=== PATIENT | male | born 1960 | race American Indian/Alaskan Native ===

== ENCOUNTER 2017-08-10 07:31 | Emergency (ER) | payer OTHER, SELFPAY ==
[2017-08-10] MEDS ORDERED: NACL 0.9% 1000 ML 1,000 ML IV ONE (08:18)
--- NOTE | 2017-08-10 08:24 | Emergency Department Report ---
ED Seizure HPI - General Chief Complaint: Extremity Injury, Upper Stated Complaint: ABDOMINAL PAIN L SHOULDER PAIN Time Seen by Provider: 08/10/17 07:59 Source: patient, family, EMS Mode of arrival: Stretcher Limitations: No Limitations - History of Present Illness Initial Comments: Patient is 56 years old male with no significant past medical history. Patient brought to the ER via EMS after he had an episode of seizure-like activity. Patient witness patient having a tonic clonic jerking movement with eye rolling back and biting his tongue. Patient stated that he did not have any symptoms when he went to bed last night. stated that he is confused after this event but she stated that he is back to his normal baseline. Patient is complaining of left shoulder pain. He denied any headache, weakness or numbness or tingling sensation. No bowel or bladder incontinence. MD Complaint: seizure -: Sudden Description of Episode: loss of consciousness, tonic-clonic movement, post- event confusion Witnessed:: Yes Trauma: Yes (left shoulder injury) Seizure History: none Place: home Possible Precipitating Event: none Associated Symptoms: tongue injury, shoulder dislocation. denies: chest pain, confusion, cough, diaphoresis, fever/chills, loss of appetite, malaise, rash, shortness of breath, syncope, weakness Treatments Prior to Arrival: none - Related Data Previous Rx's Medication Instructions Recorded Last Taken Type Cyclobenzaprine [Flexeril] 10 mg PO TID PRN #14 tablet 08/01/13 Unknown Rx HYDROcodone/APAP 5-325 [[place] 1 each PO Q6HR PRN #14 tablet 08/01/13 Unknown Rx 5-325 mg TAB] Ibuprofen [Motrin] 800 mg PO Q8H PRN #20 tablet 08/01/13 Unknown Rx Allergies Allergy/AdvReac Type Severity Reaction Status Date / Time No Known Allergies Allergy Verified 08/10/17 11:08 ED Review of Systems ROS: Stated complaint: ABDOMINAL PAIN L SHOULDER PAIN Other details as noted in HPI Comment: All other systems reviewed and negative Constitutional: denies: chills, fever Respiratory: denies: cough, orthopnea, shortness of breath, SOB with exertion, SOB at rest Cardiovascular: denies: chest pain, palpitations, dyspnea on exertion Gastrointestinal: denies: abdominal pain, nausea, vomiting, diarrhea, constipation, hematemesis, melena, hematochezia Genitourinary: denies: urgency, dysuria, frequency, hematuria, discharge, testicular pain, testicular mass Skin: denies: rash, lesions Neurological: denies: headache, weakness, numbness, paresthesias, confusion ED Past Medical Hx - Past Medical History Previous Medical History?: No - Surgical History Past Surgical History?: Yes Additional Surgical History: Abdominal surgery - Social History Smoking Status: Never Smoker Substance Use Type: Alcohol - Medications Home Medications: Home Medications Medication Instructions Recorded Confirmed Last Taken Type Cyclobenzaprine [Flexeril] 10 mg PO TID PRN #14 tablet 08/01/13 Unknown Rx HYDROcodone/APAP 5-325 [[place] 1 each PO Q6HR PRN #14 tablet 08/01/13 Unknown Rx 5-325 mg TAB] Ibuprofen [Motrin] 800 mg PO Q8H PRN #20 tablet 08/01/13 Unknown Rx ED Physical Exam - General Limitations: No Limitations General appearance: alert, in no apparent distress - Head Head exam: Present: atraumatic, normocephalic, normal inspection - Eye Eye exam: Present: normal appearance, PERRL Pupils: Present: normal accommodation - ENT ENT exam: Present: normal exam, normal orophraynx, mucous membranes moist, TM's normal bilaterally, normal external ear exam - Neck Neck exam: Present: normal inspection, full ROM. Absent: tenderness, meningismus, lymphadenopathy, thyromegaly - Respiratory Respiratory exam: Present: normal lung sounds bilaterally. Absent: respiratory distress, wheezes, rales, rhonchi, stridor, chest wall tenderness, accessory muscle use, decreased breath sounds, prolonged expiratory - Cardiovascular Cardiovascular Exam: Present: regular rate, normal rhythm, normal heart sounds - GI/Abdominal GI/Abdominal exam: Present: soft, normal bowel sounds. Absent: distended, tenderness, guarding, rebound, rigid, organomegaly, mass, bruit, pulsatile mass , hernia - Extremities Exam Extremities exam: Present: normal inspection. Absent: full ROM (left shoulder with decreased range of motion), tenderness, pedal edema, joint swelling - Back Exam Back exam: Present: normal inspection, full ROM. Absent: tenderness, CVA tenderness (R), CVA tenderness (L), muscle spasm, paraspinal tenderness, vertebral tenderness, rash noted - Neurological Exam Neurological exam: Present: alert, oriented X3, CN II-XII intact, normal gait, reflexes normal. Absent: motor sensory deficit - Skin Skin exam: Present: warm, intact, normal color ED Course Vital Signs 08/10/17 08/10/17 08/10/17 07:41 08:56 10:04 Temperature 97.7 F Temperature [ Pre-Procedure] Pulse Rate 81 Pulse Rate [ Intra-Procedure ] Pulse Rate [ Post-Procedure] Pulse Rate [Pre -Procedure] Respiratory 18 16 12 Rate Respiratory Rate [Intra- Procedure] Respiratory Rate [Post- Procedure] Respiratory Rate [Pre- Procedure] Blood Pressure 160/70 Blood Pressure [Intra- Procedure] Blood Pressure [Post-Procedure ] Blood Pressure [Pre-Procedure] Blood Pressure 160/70 [Right] O2 Sat by Pulse 98 98 100 Oximetry O2 Sat by Pulse Oximetry [ Intra-Procedure ] O2 Sat by Pulse Oximetry [Post -Procedure] O2 Sat by Pulse Oximetry [Pre- Procedure] 08/10/17 08/10/17 08/10/17 10:14 10:15 10:31 Temperature Temperature [ Pre-Procedure] Pulse Rate 56 L 46 L 76 Pulse Rate [ Intra-Procedure ] Pulse Rate [ Post-Procedure] Pulse Rate [Pre -Procedure] Respiratory 20 12 28 H Rate Respiratory Rate [Intra- Procedure] Respiratory Rate [Post- Procedure] Respiratory Rate [Pre- Procedure] Blood Pressure 207/95 Blood Pressure [Intra- Procedure] Blood Pressure [Post-Procedure ] Blood Pressure [Pre-Procedure] Blood Pressure 168/98 [Right] O2 Sat by Pulse 100 99 100 Oximetry O2 Sat by Pulse Oximetry [ Intra-Procedure ] O2 Sat by Pulse Oximetry [Post -Procedure] O2 Sat by Pulse Oximetry [Pre- Procedure] 08/10/17 08/10/17 08/10/17 10:40 10:45 10:50 Temperature Temperature [ Pre-Procedure] Pulse Rate 78 50 L Pulse Rate [ Intra-Procedure ] Pulse Rate [ Post-Procedure] Pulse Rate [Pre -Procedure] Respiratory 11 L 10 L Rate Respiratory Rate [Intra- Procedure] Respiratory Rate [Post- Procedure] Respiratory Rate [Pre- Procedure] Blood Pressure 188/93 Blood Pressure [Intra- Procedure] Blood Pressure [Post-Procedure ] Blood Pressure [Pre-Procedure] Blood Pressure [Right] O2 Sat by Pulse 100 100 Oximetry O2 Sat by Pulse Oximetry [ Intra-Procedure ] O2 Sat by Pulse Oximetry [Post -Procedure] O2 Sat by Pulse Oximetry [Pre- Procedure] 08/10/17 08/10/17 08/10/17 10:53 11:00 11:06 Temperature Temperature [ 98.6 F Pre-Procedure] Pulse Rate 53 L 49 L Pulse Rate [ 90 Intra-Procedure ] Pulse Rate [ 49 L Post-Procedure] Pulse Rate [Pre 59 L -Procedure] Respiratory 23 23 Rate Respiratory 31 H Rate [Intra- Procedure] Respiratory 25 H Rate [Post- Procedure] Respiratory 12 Rate [Pre- Procedure] Blood Pressure 180/90 Blood Pressure 221/95 [Intra- Procedure] Blood Pressure 213/90 [Post-Procedure ] Blood Pressure 196/62 [Pre-Procedure] Blood Pressure 180/90 [Right] O2 Sat by Pulse 100 100 Oximetry O2 Sat by Pulse 100 Oximetry [ Intra-Procedure ] O2 Sat by Pulse 100 Oximetry [Post -Procedure] O2 Sat by Pulse 100 Oximetry [Pre- Procedure] 08/10/17 08/10/17 08/10/17 11:15 11:23 11:31 Temperature Temperature [ Pre-Procedure] Pulse Rate 48 L 55 L 57 L Pulse Rate [ Intra-Procedure ] Pulse Rate [ Post-Procedure] Pulse Rate [Pre -Procedure] Respiratory 24 28 H 25 H Rate Respiratory Rate [Intra- Procedure] Respiratory Rate [Post- Procedure] Respiratory Rate [Pre- Procedure] Blood Pressure 183/97 180/90 Blood Pressure [Intra- Procedure] Blood Pressure [Post-Procedure ] Blood Pressure [Pre-Procedure] Blood Pressure 183/97 [Right] O2 Sat by Pulse 98 100 99 Oximetry O2 Sat by Pulse Oximetry [ Intra-Procedure ] O2 Sat by Pulse Oximetry [Post -Procedure] O2 Sat by Pulse Oximetry [Pre- Procedure] 08/10/17 08/10/17 11:45 12:01 Temperature 97.9 F Temperature [ Pre-Procedure] Pulse Rate 69 48 L Pulse Rate [ Intra-Procedure ] Pulse Rate [ Post-Procedure] Pulse Rate [Pre -Procedure] Respiratory 17 15 Rate Respiratory Rate [Intra- Procedure] Respiratory Rate [Post- Procedure] Respiratory Rate [Pre- Procedure] Blood Pressure 175/85 183/97 Blood Pressure [Intra- Procedure] Blood Pressure [Post-Procedure ] Blood Pressure [Pre-Procedure] Blood Pressure 175/85 [Right] O2 Sat by Pulse 97 97 Oximetry O2 Sat by Pulse Oximetry [ Intra-Procedure ] O2 Sat by Pulse Oximetry [Post -Procedure] O2 Sat by Pulse Oximetry [Pre- Procedure] ED Medical Decision Making - Lab Data Result diagrams: 08/10/17 08:35 08/10/17 08:35 - Radiology Data Radiology results: report reviewed Referring Physician: CUCO ENAMORADO Patient Name: NIC CRESPO Date of : 1960 Sex: Male Report Date: 2017-08-10 Report Status: Finalized Findings [facility] [address] [place] [address] Cat Scan Report Signed Patient: NIC CRESPO MR#: [id number] : 1960 Acct:[id number] Age/Sex: 56 / M ADM Date: 08/10/17 Loc: ED Attending Dr: Ordering Physician: CUCO ENAMORADO Date of Service: 08/10/17 Procedure(s): CT head/brain wo con Accession Number(s): [id number] cc: CUCO ENAMORADO CT scan of head without IV contrast: History: Seizure. Findings: Ventricles are normal in size and midline in location. No evidence of acute ischemic, hemorrhage or mass. No extra-axial fluid collection. Normal brainstem and cerebellum. Impression: No acute intracranial abnormality. Transcribed By: PTP Dictated By: DENNIS REYES MD Electronically Authenticated By: DENNIS REYES MD Signed Date/Time: 08/10/17855 DD/ 4 TD/TT: 08/10/17855 - Medical Decision Making I discussed the patient is Dr. Kirkpatrick, who agreed to admit to service. Critical care attestation.: If time is entered above; I have spent that time in minutes in the direct care of this critically ill patient, excluding procedure time. ED Disposition Clinical Impression: New onset seizure, Fracture dislocation of left shoulder joint Disposition: OP ADMIT IP TO THIS HOSP Is pt being admited?: Yes Condition: Stable Referrals: PRIMARY CARE, [Primary Care Provider] - 3-5 Days
[2017-08-10] MEDS ORDERED: KEPPRA 1,000 MG/NS 0.75% 100ML 1,000 MG/100 ML BAG IV ONE (08:25)
[2017-08-10 08:50] LABS: Basophils # (Auto) 0.1 K/mm3 (0.0-0.1); Basophils % (Auto) 0.4 % (0.0-1.8); Eosinophils % (Auto) 0.3 % (0.0-4.3); Hemoglobin 15.4 gm/dl (11.8-15.2); Lymphocytes # (Auto) 0.9 K/mm3 (1.2-5.4); Lymphocytes % (Auto) 5.9 % (13.4-35.0); Mean Corpuscular HGB Conc 35 % (32-34); Mean Corpuscular Hemoglobin 35 pg (28-32); Mean Corpuscular Volume 99 fl (84-94); Monocytes # (Auto) 0.9 K/mm3 (0.0-0.8); Monocytes % (Auto) 5.7 % (0.0-7.3); Platelet Count 205 K/mm3 (140-440); Red Blood Count 4.44 M/mm3 (3.65-5.03); Red Cell Distribution Width 13.1 % (13.2-15.2)
[2017-08-10 08:59] LABS: Amphetamine Screen,Urine PRESUMPTIVE NEGATIVE; Benzodiazepines Screen,Urine PRESUMPTIVE NEGATIVE; Cocaine Screen,Urine PRESUMPTIVE NEGATIVE; Methadone Screen,Urine PRESUMPTIVE NEGATIVE; Opiate Screen,Urine PRESUMPTIVE NEGATIVE
[2017-08-10 09:11] LABS: Cannabinoid Screen,Urine PRESUMPTIVE POSITIVE
[2017-08-10 09:18] LABS: Bilirubin,Urine NEG (Negative); Blood,Urine MOD (Negative); Color,Urine Straw (Yellow); Mucus,Urine FEW /HPF; Urobilinogen,Urine < 2.0 mg/dL (<2.0); WBC,Urine < 1.0 /HPF (0.0-6.0)
--- NOTE | 2017-08-10 09:18 | Cat Scan Report ---
CT scan of head without IV contrast: History: Seizure. Findings: Ventricles are normal in size and midline in location. No evidence of acute ischemic, hemorrhage or mass. No extra-axial fluid collection. Normal brainstem and cerebellum. Impression: No acute intracranial abnormality.
[2017-08-10 09:19] LABS: Alanine Aminotransferase 18 units/L (7-56); BUN/Creatinine Ratio 15; Blood Urea Nitrogen 12 mg/dL (9-20); Calcium 9.2 mg/dL (8.4-10.2); Hemolysis Index 11
[2017-08-10] MEDS ORDERED: ZOFRAN IV ONE ×3 (09:41→19:37)
[2017-08-10] MEDS ORDERED: KETALAR IV ONE (10:00)
[2017-08-10] MEDS ORDERED: SUBLIMAZE IV ONE ×2 (10:00→11:20)
[2017-08-10] MEDS ORDERED: DIPRIVAN 10 MG/ML IV ONE (10:31)
[2017-08-10] MEDS ORDERED: KETAMINE HCL IV ONE (11:00)
--- NOTE | 2017-08-10 11:01 | XRay Report ---
Single view left shoulder: History: Suspected bone fracture. Post reduction. Findings: A.c. joint appears normal. The alignment of the humeral head with the glenoid appears normal in single internal rotation view. There is a bony fragment identified between the glenoid and the humeral head which may be a fracture from the humerus most probably and less likely a fracture from the glenoid. Impression: Findings as detailed above. If clinically indicated CT scan may be advised.
[2017-08-10] MEDS ORDERED: AMIDATE IV ONE ×2 (11:21→14:53)
[2017-08-10] MEDS ORDERED: MORPHINE IV ONE (12:25)
--- NOTE | 2017-08-10 12:29 | XRay Report ---
Left shoulder single view post reduction: Compared to 08/10/17 obtained at 10:35 AM. Findings: Normal alignment of humeral mid glenoid in single internal rotation view. Bony fragment identified between glenoid and humeral head. No interval change seen. Impression: No interval change.
--- NOTE | 2017-08-10 13:54 | History and Physical Report ---
History of Present Illness Chief complaint: I had a seizure History of present illness: 56 YO Male with NO PMH presents to ED for evaluation of new onset seizure complicated by a fall which resulted on left shoulder dislocation. Pt seen and evaluated in ED and treated with antiepileptic therapy with resolution of symptoms. Pt shoulder reduced in ED. Pt medically optimized and back to usual state of health. Pt discharged home and instructed to f/u pcp 1wk, neurology 1 wk. Pt instructed to refrain from driving, and climbing to heights above 2 feet until cleared by neurologist. Pt also instructed to f/u with ortho surgery for f /u care. within 3-5 days. Past History Past Medical History: No medical history, other (reviewed) Past Surgical History: bowel surgery Social history: , lives with family Family history: no significant family history (reviewed) Medications and Allergies Allergies Allergy/AdvReac Type Severity Reaction Status Date / Time No Known Allergies Allergy Verified 08/10/17 11:08 Home Medications Medication Instructions Recorded Confirmed Last Taken Type Cyclobenzaprine [Flexeril] 10 mg PO TID PRN #14 tablet 08/01/13 Unknown Rx HYDROcodone/APAP 5-325 [[place] 1 each PO Q6HR PRN #14 tablet 08/01/13 Unknown Rx 5-325 mg TAB] Ibuprofen [Motrin] 800 mg PO Q8H PRN #20 tablet 08/01/13 Unknown Rx Oxycodone HCl/Acetaminophen 1 each PO Q6HR PRN #28 tablet 08/10/17 Unknown Rx [Percocet 7.5/325 mg] levETIRAcetam [Keppra] 500 mg PO BID #60 tablet 08/10/17 Unknown Rx Active Meds: Active Medications Vancomycin HCl (Vancomycin/Ns 1 Gm/250 Ml) 1 gm in 250 mls @ 167.007 mls/hr IV ONCE FIDELIA; Protocol Levetiracetam (Keppra) 500 mg PO BID FIDELIA Vancomycin HCl (Vancomycin Pharmacy To Dose) 1 each IV PKCONSULT FIDELIA Review of Systems Constitutional: no weight loss, no weight gain, no fever, no chills Ears, nose, mouth and throat: no ear pain, no ear discharge, no tinnitis, no decreased hearing Cardiovascular: syncope, no chest pain, no orthopnea, no palpitations, no rapid/ irregular heart beat Respiratory: no cough, no cough with sputum, no excessive sputum, no hemoptysis , no shortness of breath Gastrointestinal: no nausea, no vomiting, no constipation, no change in bowel habits Genitourinary Male: no dysuria, no hematuria, no flank pain, no discharge, no urinary frequency, no urinary hesitancy, no nocturia Rectal: no pain, no incontinence, no bleeding Musculoskeletal: no neck stiffness, no neck pain, no shooting arm pain, no arm numbness/tingling, no low back pain, no shooting leg pain, no leg numbness/ tingling Integumentary: no rash, no pruritis, no redness, no sores, no wounds Neurological: seizures, syncope, no head injury, no transient paralysis, no paralysis, no weakness, no parathesias, no vertigo, no headaches, no migraines Psychiatric: no anxiety, no memory loss, no change in sleep habits, no sleep disturbances, no insomnia, no hypersomnia Endocrine: no cold intolerance, no heat intolerance, no polyphagia, no excessive thirst, no polydipsia, no polyuria, no nocturia Hematologic/Lymphatic: no easy bruising, no easy bleeding, no lymphadenopathy, no lymphedema Allergic/Immunologic: no urticaria, no allergic rhinitis, no wheezing, no persistent infections, no anaphylaxis Exam - Constitutional Vitals: Temp Pulse Resp BP Pulse Ox 97.9 F 48 L 15 183/97 97 08/10/17 11:45 08/10/17 12:01 08/10/17 12:01 08/10/17 12:01 08/10/17 12:01 General appearance: Present: no acute distress, well-nourished - EENT Eyes: Present: PERRL ENT: hearing intact, clear oral mucosa - Neck Neck: Present: supple, normal ROM - Respiratory Respiratory effort: normal Respiratory: bilateral: CTA - Cardiovascular Heart Sounds: Present: S1 & S2. Absent: rub, click - Extremities Extremities: pulses symmetrical, No edema Peripheral Pulses: within normal limits - Abdominal General gastrointestinal: Present: soft, non-tender, non-distended, normal bowel sounds Male genitourinary: Present: normal - Integumentary Integumentary: Present: clear, warm, dry - Musculoskeletal Musculoskeletal: gait normal, strength equal bilaterally - Psychiatric Psychiatric: appropriate mood/affect, intact judgment & insight - Neurologic Neurologic: CNII-XII intact, moves all extremities Results - Labs CBC & Chem 7: 08/10/17 08:35 08/10/17 08:35 Labs: Abnormal lab results 08/10/17 08/10/17 Range/Units 08:35 08:35 WBC 15.0 H (4.5-11.0) K/mm3 Hgb 15.4 H (11.8-15.2) gm/dl MCV 99 H (84-94) fl MCH 35 H (28-32) pg MCHC 35 H (32-34) % RDW 13.1 L (13.2-15.2) % Lymph % (Auto) 5.9 L (13.4-35.0) % Lymph # 0.9 L (1.2-5.4) K/mm3 [place] # 0.9 H (0.0-0.8) K/mm3 Seg Neutrophils % 87.7 H (40.0-70.0) % Seg Neutrophils # 13.2 H (1.8-7.7) K/mm3 Chloride 96.2 L (98-107) mmol/L Glucose 119 H (75-100) mg/dL Assessment and Plan - Patient Problems (1) Fracture dislocation of left shoulder joint Status: Acute Qualifiers: Encounter type: initial encounter Plan to address problem: Shoulder reduced in ED, Ortho F/U 3-5 days,pain control (2) New onset seizure Status: Acute Plan to address problem: keppra therapy, neurology f//u 1wk. No driving until cleared by neurology.
[2017-08-10] MEDS ORDERED: VANCOMYCIN PHARMACY TO DOSE IV SCH (14:00)
[2017-08-10] MEDS ORDERED: VANCOMYCIN 1,500 MG in NACL 0.9% 500 ML 500 ML IV ONE (14:15)
[2017-08-10] MEDS ORDERED: DILAUDID IV ONE ×2 (14:26→19:37)
[2017-08-10] MEDS ORDERED: PERCOCET 5/325 PO ONE (16:04)
[2017-08-10] MEDS ORDERED: ZOFRAN ONE (17:31)
[2017-08-10] MEDS ORDERED: APRESOLINE IV ONE (19:37)
[2017-08-10 19:54] VITALS: BP 184/78
[2017-08-10] MEDS ORDERED: KEPPRA PO SCH (22:00)
[2017-08-11] MEDS ORDERED: VANCOMYCIN/NS 1 GM/250 ML 1 GM/250 ML BAG IV SCH (04:00)
--- NOTE | 2017-08-12 14:26 | Cat Scan Report ---
FINAL REPORT EXAM: CT UPPER EXTREM LT WO CON HISTORY: left shoulder dislocation and fracture TECHNIQUE: CT of the left shoulder was performed without intravenous contrast. Coronal and sagittal reconstructions were included. PRIORS: Left shoulder radiographs from 08/10/2017. FINDINGS: Posterior glenohumeral joint dislocation is again seen with acute fracture of the anteromedial aspect of the humeral head. There is a fracture fragment displaced anterolaterally. Fracture of the posterior margin of the glenoid rim is seen. Mild left lower lobe atelectasis is seen. Coronary artery calculi are seen. Mild centrilobular emphysema is seen. Degenerative changes are seen in the thoracic spine. IMPRESSION: Posterior left glenohumeral joint dislocation with acute reverse Hill-Sachs and reverse [place] deformities.
--- NOTE | 2017-08-12 14:26 | XRay Report ---
FINAL REPORT EXAM: XR SHOULDER 2+V LT HISTORY: Left shoulder injury COMPARISONS: None. FINDINGS: Four views left shoulder Left glenohumeral joint is posteriorly dislocated. Minimally displaced glenoid fracture is present. Reverse Hill-Sachs impaction deformity is also present. Acromioclavicular and coracoclavicular intervals are within normal limits. Incomplete evaluation the adjacent left lung is unremarkable. IMPRESSION: Posterior left shoulder dislocation is present with associated reverse [place] and Hill-Sachs lesions.
== END 2017-08-10 20:00 | disposition admitted as inpatient to this hospital (09) ==
LOC: ED 07:31
DX: S43.005A Unspecified dislocation of left shoulder joint, initial encounter (principal); X58.XXXA Exposure to other specified factors, initial encounter; Y93.89 Activity, other specified; Y92.89 Other specified places as the place of occurrence of the external cause; Y99.8 Other external cause status; R56.9 Unspecified convulsions
CPT/HCPCS: 23650; 36415; 70450; 73020; 73030; 73200; 80053; 80307; 81001; 84484; 85025; 93005; 93010; 94760; 96365; 96366; 96367; 96375; 96376; 99285; G0480; J0360; J1170; J1953; J2270; J2405; J3010; J3370; J7030; J7040; 80320; J2704

== ENCOUNTER 2018-06-17 12:30 | Emergency (ER) | payer OTHER ==
[2018-06-17 13:14] LABS: Hematocrit 44.5 % (35.5-45.6); Hemoglobin 15.3 gm/dl (11.8-15.2); Mean Corpuscular HGB Conc 34 % (32-34); Mean Corpuscular Volume 98 fl (84-94); Platelet Count 248 K/mm3 (140-440); Red Blood Count 4.53 M/mm3 (3.65-5.03); Red Cell Distribution Width 13.2 % (13.2-15.2)
[2018-06-17 13:34] LABS: BUN/Creatinine Ratio 17; Blood Urea Nitrogen 12 mg/dL (9-20); Calcium 8.8 mg/dL (8.4-10.2); Hemolysis Index 14
[2018-06-17 14:11] LABS: Bilirubin,Urine NEG (Negative); Blood,Urine SM (Negative); Color,Urine Yellow (Yellow); Mucus,Urine FEW /HPF; Urobilinogen,Urine < 2.0 mg/dL (<2.0)
--- NOTE | 2018-06-17 14:51 | Cat Scan Report ---
PROCEDURE: CT HEAD/BRAIN WO CON TECHNIQUE: Computerized tomography of the head was performed without contrast material. Coronal and s agittal reformatted images were provided. CT DOSE LENGTH PRODUCT: 920.5 mGy-cm. HISTORY: possible seizure COMPARISONS: CT head August 10, 2017. FINDINGS: There is no evidence for acute ischemia. There is no hemorrhage. There is no midline shift. There is no hydrocephalus. There is no mass. Age appropriate zhang-white matter attenuation is noted. There is no calvarial fracture. The temporal bones demonstrate aerated mastoid air cells. The middle ears appear unremarkable. Paranasal sinuses are unremarkable. Chronic left lamina papyracea fracture. Globes are intact. IMPRESSION: * No acute intracranial findings. This document is electronically signed by Pancho Rosado MD., June 17 2018 02:48:49 PM ET
--- NOTE | 2018-06-17 15:06 | XRay Report ---
ROUTINE CHEST, TWO VIEWS: HISTORY: Altered mental status. The trachea, heart, mediastinal contour, lung valentino and bony thorax are unremarkable. IMPRESSION: Unremarkable chest x-ray.
[2018-06-17] MEDS ORDERED: KEPPRA 1,000 MG in NACL 0.9% 100 ML IV ONE (15:34)
[2018-06-17] MEDS ORDERED: KEPPRA 1,000 MG/NS 0.75% 100ML 1,000 MG/100 ML BAG IV ONE (15:35)
--- NOTE | 2018-06-17 15:38 | Emergency Department Report ---
ED Seizure HPI - General Chief Complaint: Seizure Stated Complaint: SEIZURE Time Seen by Provider: 06/17/18 12:54 Source: EMS Mode of arrival: Stretcher Limitations: No Limitations - History of Present Illness Initial Comments: 57-year-old male presents to ED for a possible seizure at home. Patient was at home with daughter and grandchild, daughter reports patient dropped his grandchild and became altered, unresponsive, with a blank stare. No urinary incontinence. EMS was called. Patient became responsive and EMS arrived however states he was confused and had no recollection of the events. Patient diagnosed with new onset seizure in August of last year, however it is not taking any anti-convulsants. Denies alcohol, drug use. Patient denies fever, any recent illness such as cough, vomiting, diarrhea, abdominal pain. Patient also denies chest pain, shortness of breath, headache. PCP: the [facility] Complaint: possible seizure -: This afternoon Description of Episode: post-event confusion Witnessed:: Yes Trauma: No Seizure History: known seizure disorder, history of non-compliance Place: home Associated Symptoms: denies: chest pain, cough, fever/chills, shortness of breath, tongue injury, shoulder dislocation - Related Data Home Medications Medication Instructions Recorded Confirmed Last Taken Amlodipine Besylate [Norvasc] 5 mg PO QDAY 06/17/18 06/17/18 06/16/18 Ibuprofen [Motrin] 800 mg PO DAILY PRN 06/17/18 06/17/18 Unknown Previous Rx's Medication Instructions Recorded Last Taken Type levETIRAcetam [Keppra TAB] 500 mg PO BID #60 tablet 06/17/18 Unknown Rx Allergies Allergy/AdvReac Type Severity Reaction Status Date / Time No Known Allergies Allergy Verified 08/10/17 11:08 ED Review of Systems ROS: Stated complaint: SEIZURE Other details as noted in HPI Comment: All other systems reviewed and negative Constitutional: denies: chills, fever Respiratory: denies: shortness of breath Cardiovascular: denies: chest pain Gastrointestinal: denies: nausea, vomiting, diarrhea Neurological: denies: headache ED Past Medical Hx - Past Medical History Previous Medical History?: Yes Hx Hypertension: Yes Hx Seizures: Yes - Surgical History Past Surgical History?: Yes Additional Surgical History: Abdominal surgery - Social History Smoking Status: Current Some Day Smoker Substance Use Type: None - Medications Home Medications: Home Medications Medication Instructions Recorded Confirmed Last Taken Type Amlodipine Besylate [Norvasc] 5 mg PO QDAY 06/17/18 06/17/18 06/16/18 History Ibuprofen [Motrin] 800 mg PO DAILY PRN 06/17/18 06/17/18 Unknown History levETIRAcetam [Keppra TAB] 500 mg PO BID #60 tablet 06/17/18 Unknown Rx ED Physical Exam - General Limitations: No Limitations General appearance: alert, in no apparent distress - Head Head exam: Present: atraumatic, normocephalic - Eye Eye exam: Present: normal appearance - ENT ENT exam: Present: mucous membranes moist - Neck Neck exam: Present: normal inspection - Respiratory Respiratory exam: Present: normal lung sounds bilaterally. Absent: respiratory distress - Cardiovascular Cardiovascular Exam: Present: regular rate, normal rhythm - GI/Abdominal GI/Abdominal exam: Present: soft. Absent: distended, tenderness - Extremities Exam Extremities exam: Present: normal inspection - Neurological Exam Neurological exam: Present: alert, oriented X3, CN II-XII intact. Absent: motor sensory deficit - Psychiatric Psychiatric exam: Present: normal affect, normal mood - Skin Skin exam: Present: warm, dry, intact, normal color ED Course Vital Signs 06/17/18 06/17/18 06/17/18 12:44 12:54 13:00 Temperature 99 F Pulse Rate 82 66 55 L Respiratory 16 15 13 Rate Blood Pressure 160/104 145/82 Blood Pressure 144/74 [Left] O2 Sat by Pulse 99 100 99 Oximetry 06/17/18 06/17/18 06/17/18 13:13 14:00 14:30 Temperature Pulse Rate 58 L 59 L Respiratory 15 21 10 L Rate Blood Pressure 148/77 144/79 Blood Pressure [Left] O2 Sat by Pulse 100 99 99 Oximetry 06/17/18 06/17/18 06/17/18 15:00 15:31 16:00 Temperature Pulse Rate 57 L Respiratory 15 24 Rate Blood Pressure 134/78 135/71 149/78 Blood Pressure [Left] O2 Sat by Pulse 95 96 97 Oximetry 06/17/18 06/17/18 06/17/18 16:31 17:01 17:30 Temperature Pulse Rate 72 55 L 65 Respiratory 13 14 10 L Rate Blood Pressure 149/53 118/58 120/66 Blood Pressure [Left] O2 Sat by Pulse 96 92 92 Oximetry 06/17/18 17:46 Temperature 99 F Pulse Rate 65 Respiratory 10 L Rate Blood Pressure Blood Pressure 120/66 [Left] O2 Sat by Pulse 92 Oximetry - Reevaluation(s) Reevaluation #1: 06/17/18 15:34 RN reports she witnessed pt having possible partial seizure, blank stare, tremulous, w/o major tonic-clonic movement. Will give keppra. ED Medical Decision Making - Lab Data Result diagrams: 06/17/18 13:05 06/17/18 13:02 - EKG Data -: EKG Interpreted by [facility] EKG shows normal: sinus rhythm, axis, intervals, QRS complexes Rate: bradycardia (rate 53) - EKG Data When compared to previous EKG there are: no significant change (compared to 08/2017) Interpretation: other (PAC's present; inferolateral T wave inversions) - Radiology Data Radiology results: report reviewed, image reviewed - Medical Decision Making 57-year-old male with history of seizures, not currently on any antiepileptics with seizure at home and also seizure activity ED. Patient loaded with Keppra and observed. No further seizure activity here in ED. CT head negative. Patient has elevation in WBCs, however he is afebrile, does not report any symptoms of infection. Highly unlikely that this is any sort of meningitis or encephalitis as patient has returned to baseline following this seizure activity, and has been appropriate since. WBCs possibly elevated from the seizure itself. Chest x-ray and urine negative. EKG abnormal, but mostly unchanged from previous EKG in August 2017. Patient will be given prescription for Keppra. Return precautions given. Outpatient follow-up advised. - Differential Diagnosis seizure Critical care attestation.: If time is entered above; I have spent that time in minutes in the direct care o f this critically ill patient, excluding procedure time. ED Disposition Clinical Impression: Seizure Disposition: DC-01 TO HOME OR SELFCARE Is pt being admited?: No Condition: Stable Instructions: Recurrent Seizures Adult (ED) Prescriptions: levETIRAcetam [Keppra TAB] 500 mg PO BID #60 tablet Referrals: ALEC GIMENEZ MD [Primary Care Provider] - 3-5 Days NEIL HORNE MD [Referring] - 3-5 Days Time of Disposition: 17:34
[2018-06-17] MEDS ORDERED: IBUPROFEN PO ONE (17:32)
[2018-06-17 17:47] VITALS: BP 120/66
== END 2018-06-17 18:02 | disposition home or self-care (01) ==
LOC: ED 12:30
DX: G40.909 Epilepsy, unspecified, not intractable, without status epilepticus (principal); I10 Essential (primary) hypertension; F17.200 Nicotine dependence, unspecified, uncomplicated
CPT/HCPCS: 36415; 70450; 71046; 80048; 81001; 82962; 84484; 85027; 93005; 93010; 96365; 99285; J1953

== ENCOUNTER 2019-05-27 15:53 | Observation (INO) | payer OTHER ==
[2019-05-27] MEDS ORDERED: ONDANSETRON 4 MG/2 ML INJ ONE (17:21)
[2019-05-27] MEDS ORDERED: ONDANSETRON 4 MG/2 ML INJ IV ONE (17:22)
[2019-05-27] MEDS ORDERED: MORPHINE 4 MG/1 ML INJ IV ONE (17:22)
--- NOTE | 2019-05-27 17:34 | Emergency Department Report ---
ED General Adult HPI - General Chief complaint: Altered Mental Status Stated complaint: AMS Time Seen by Provider: 05/27/19 16:57 Source: patient, EMS Mode of arrival: Ambulatory Limitations: No Limitations - History of Present Illness Initial comments: The patient presents to the emergency department with a chief complaint of a headache and not be remembering things. Patient states the last thing he remembers is going to sleep last night. Patient is able to tell me his date of and his location but other than that he does show some decline when it comes to immediate recall. Patient denies chest pain, shortness breath, or abdominal pain. -: Sudden Location: head Severity scale (0 -10): 8 Quality: other (Throbbing) Consistency: constant Improves with: none Worsens with: none Associated Symptoms: denies other symptoms Treatments Prior to Arrival: none - Related Data Home Medications Medication Instructions Recorded Confirmed Last Taken Amlodipine Besylate [Norvasc] 5 mg PO QDAY 06/17/18 06/17/18 06/16/18 Ibuprofen [Motrin] 800 mg PO DAILY PRN 06/17/18 06/17/18 Unknown Previous Rx's Medication Instructions Recorded Last Taken Type levETIRAcetam [Keppra TAB] 500 mg PO BID #60 tablet 06/17/18 Unknown Rx Allergies Allergy/AdvReac Type Severity Reaction Status Date / Time No Known Allergies Allergy Verified 08/10/17 11:08 ED Review of Systems ROS: Stated complaint: AMS Other details as noted in HPI Comment: All other systems reviewed and negative Constitutional: denies: chills, fever Eyes: denies: eye pain, eye discharge, vision change ENT: denies: ear pain, throat pain Respiratory: denies: cough, shortness of breath, wheezing Cardiovascular: denies: chest pain, palpitations Endocrine: no symptoms reported Gastrointestinal: denies: abdominal pain, nausea, diarrhea Genitourinary: denies: urgency, dysuria Musculoskeletal: denies: back pain, joint swelling, arthralgia Skin: denies: rash, lesions Neurological: denies: headache, weakness, paresthesias Psychiatric: denies: anxiety, depression Hematological/Lymphatic: denies: easy bleeding, easy bruising ED Past Medical Hx - Past Medical History Previous Medical History?: Yes Hx Hypertension: Yes Hx Seizures: Yes - Surgical History Past Surgical History?: Yes Additional Surgical History: Abdominal surgery - Social History Smoking Status: Current Every Day Smoker Substance Use Type: None - Medications Home Medications: Home Medications Medication Instructions Recorded Confirmed Last Taken Type Amlodipine Besylate [Norvasc] 5 mg PO QDAY 06/17/18 06/17/18 06/16/18 History Ibuprofen [Motrin] 800 mg PO DAILY PRN 06/17/18 06/17/18 Unknown History levETIRAcetam [Keppra TAB] 500 mg PO BID #60 tablet 06/17/18 Unknown Rx ED Physical Exam - General Limitations: No Limitations General appearance: alert, in no apparent distress - Head Head exam: Present: atraumatic, normocephalic - Eye Eye exam: Present: normal appearance - ENT ENT exam: Present: mucous membranes moist - Neck Neck exam: Present: normal inspection - Respiratory Respiratory exam: Present: normal lung sounds bilaterally. Absent: respiratory distress - Cardiovascular Cardiovascular Exam: Present: regular rate, normal rhythm. Absent: systolic murmur, diastolic murmur, rubs, gallop - GI/Abdominal GI/Abdominal exam: Present: soft, normal bowel sounds. Absent: distended, tenderness - Rectal Rectal exam: Present: deferred - Extremities Exam Extremities exam: Present: normal inspection - Back Exam Back exam: Present: normal inspection - Neurological Exam Neurological exam: Present: alert, oriented X3, CN II-XII intact, other (Patient has 4 out of 5 strength of the right upper and right lower extremities.) - Psychiatric Psychiatric exam: Present: normal affect, normal mood - Skin Skin exam: Present: warm, dry, intact, normal color. Absent: rash ED Course Vital Signs 05/27/19 05/27/19 05/27/19 16:03 16:10 16:15 Temperature 98.6 F Pulse Rate 62 75 59 L Respiratory 21 16 11 L Rate Blood Pressure 144/69 140/79 Blood Pressure 144/69 [Right] O2 Sat by Pulse 96 97 Oximetry 05/27/19 05/27/19 05/27/19 16:30 16:45 17:00 Temperature Pulse Rate 58 L 67 52 L Respiratory 14 18 26 H Rate Blood Pressure 153/73 145/83 163/79 Blood Pressure [Right] O2 Sat by Pulse 97 96 97 Oximetry 05/27/19 05/27/19 05/27/19 17:15 17:30 17:45 Temperature Pulse Rate 59 L 73 64 Respiratory 19 20 17 Rate Blood Pressure 162/87 161/92 151/82 Blood Pressure [Right] O2 Sat by Pulse 98 96 97 Oximetry 05/27/19 05/27/19 05/27/19 18:11 18:15 18:31 Temperature Pulse Rate 76 52 L 88 Respiratory 18 20 12 Rate Blood Pressure 125/74 125/74 125/74 Blood Pressure [Right] O2 Sat by Pulse 98 96 97 Oximetry 05/27/19 05/27/19 05/27/19 18:45 19:01 19:15 Temperature Pulse Rate 51 L 51 L 77 Respiratory 25 H 21 20 Rate Blood Pressure 166/63 Blood Pressure [Right] O2 Sat by Pulse 96 96 96 Oximetry 05/27/19 05/27/19 05/27/19 19:31 19:45 20:01 Temperature Pulse Rate 53 L 53 L 53 L Respiratory 25 H 25 H 27 H Rate Blood Pressure 170/75 177/72 154/62 Blood Pressure [Right] O2 Sat by Pulse 95 94 96 Oximetry 05/27/19 05/27/19 05/27/19 20:15 20:31 20:45 Temperature Pulse Rate 54 L 55 L 62 Respiratory 27 H 0 L 24 Rate Blood Pressure 167/100 164/76 166/85 Blood Pressure [Right] O2 Sat by Pulse 95 94 94 Oximetry 05/27/19 05/27/19 05/27/19 21:01 21:19 21:30 Temperature Pulse Rate 54 L Respiratory 0 L Rate Blood Pressure 166/85 181/87 181/87 Blood Pressure [Right] O2 Sat by Pulse 95 93 Oximetry 05/27/19 05/27/19 05/27/19 21:45 22:01 22:17 Temperature Pulse Rate Respiratory Rate Blood Pressure 181/87 181/87 181/87 Blood Pressure [Right] O2 Sat by Pulse 92 96 87 Oximetry ED Medical Decision Making - Lab Data Result diagrams: 05/27/19 18:13 05/27/19 17:50 Lab Results 05/27/19 05/27/19 05/27/19 Range/Units 17:50 17:50 18:13 WBC (4.5-11.0) K/mm3 RBC (3.65-5.03) M/mm3 Hgb (11.8-15.2) gm/dl Hct (35.5-45.6) % MCV (84-94) fl MCH (28-32) pg MCHC (32-34) % RDW (13.2-15.2) % Plt Count (140-440) K/mm3 Lymph % (Auto) (13.4-35.0) % [place] % (Auto) (0.0-7.3) % Eos % (Auto) (0.0-4.3) % Baso % (Auto) (0.0-1.8) % Lymph # (1.2-5.4) K/mm3 Hawkins # (0.0-0.8) K/mm3 Eos # (0.0-0.4) K/mm3 Baso # (0.0-0.1) K/mm3 Seg Neutrophils % (40.0-70.0) % Seg Neutrophils # (1.8-7.7) K/mm3 PT (12.2-14.9) Sec. INR (0.87-1.13) APTT (24.2-36.6) Sec. Sodium 137 (137-145) mmol/L Potassium 4.3 (3.6-5.0) mmol/L Chloride 103.7 (98-107) mmol/L Carbon Dioxide 20 L (22-30) mmol/L Anion Gap 18 mmol/L BUN 11 (9-20) mg/dL Creatinine 0.5 L (0.8-1.5) mg/dL Estimated GFR > 60 ml/min BUN/Creatinine Ratio 22 % Glucose 97 (75-100) mg/dL Lactic Acid 0.90 (0.7-2.0) mmol/L Calcium 8.9 (8.4-10.2) mg/dL Total Bilirubin 0.30 (0.1-1.2) mg/dL AST 21 (5-40) units/L ALT 14 (7-56) units/L Alkaline Phosphatase 73 (35-129) units/L Ammonia (25-60) umol/L Total Protein 7.1 (6.3-8.2) g/dL Albumin 4.3 (3.9-5) g/dL Albumin/Globulin Ratio 1.5 % TSH (0.270-4.200) mlU/mL Urine Color Yellow (Yellow) Urine Turbidity Clear (Clear) Urine pH 7.0 (5.0-7.0) Ur Specific [place] 1.013 (1.003-1.030) Urine Protein <15 mg/dl (Negative) mg/dL Urine Glucose (UA) Neg (Negative) mg/dL Urine Ketones Neg (Negative) mg/dL Urine Blood Neg (Negative) Urine Nitrite Neg (Negative) Urine Bilirubin Neg (Negative) Urine Urobilinogen < 2.0 (<2.0) mg/dL Ur Leukocyte Esterase Neg (Negative) Urine WBC (Auto) 1.0 (0.0-6.0) /HPF Urine RBC (Auto) 5.0 (0.0-6.0) /HPF Urine Mucus Few /HPF Salicylates (2.8-20.0) mg/dL Acetaminophen (10.0-30.0) ug/mL Plasma/Serum Alcohol (0-0.07) % 05/27/19 05/27/19 05/27/19 Range/Units 18:13 18:13 18:13 WBC 12.2 H (4.5-11.0) K/mm3 RBC 4.59 (3.65-5.03) M/mm3 Hgb 15.5 H (11.8-15.2) gm/dl Hct 45.8 H (35.5-45.6) % MCV 100 H (84-94) fl MCH 34 H (28-32) pg MCHC 34 (32-34) % RDW 13.8 (13.2-15.2) % Plt Count 240 (140-440) K/mm3 Lymph % (Auto) 7.4 L (13.4-35.0) % [place] % (Auto) 4.1 (0.0-7.3) % Eos % (Auto) 0.1 (0.0-4.3) % Baso % (Auto) 0.6 (0.0-1.8) % Lymph # 0.9 L (1.2-5.4) K/mm3 Hawkins # 0.5 (0.0-0.8) K/mm3 Eos # 0.0 (0.0-0.4) K/mm3 Baso # 0.1 (0.0-0.1) K/mm3 Seg Neutrophils % 87.8 H (40.0-70.0) % Seg Neutrophils # 10.7 H (1.8-7.7) K/mm3 PT 13.0 (12.2-14.9) Sec. INR 0.97 (0.87-1.13) APTT 26.9 (24.2-36.6) Sec. Sodium (137-145) mmol/L Potassium (3.6-5.0) mmol/L Chloride (98-107) mmol/L Carbon Dioxide (22-30) mmol/L Anion Gap mmol/L BUN (9-20) mg/dL Creatinine (0.8-1.5) mg/dL Estimated GFR ml/min BUN/Creatinine Ratio % Glucose (75-100) mg/dL Lactic Acid (0.7-2.0) mmol/L Calcium (8.4-10.2) mg/dL Total Bilirubin (0.1-1.2) mg/dL AST (5-40) units/L ALT (7-56) units/L Alkaline Phosphatase (35-129) units/L Ammonia 60.0 (25-60) umol/L Total Protein (6.3-8.2) g/dL Albumin (3.9-5) g/dL Albumin/Globulin Ratio % TSH (0.270-4.200) mlU/mL Urine Color (Yellow) Urine Turbidity (Clear) Urine pH (5.0-7.0) Ur Specific [place] (1.003-1.030) Urine Protein (Negative) mg/dL Urine Glucose (UA) (Negative) mg/dL Urine Ketones (Negative) mg/dL Urine Blood (Negative) Urine Nitrite (Negative) Urine Bilirubin (Negative) Urine Urobilinogen (<2.0) mg/dL Ur Leukocyte Esterase (Negative) Urine WBC (Auto) (0.0-6.0) /HPF Urine RBC (Auto) (0.0-6.0) /HPF Urine Mucus /HPF Salicylates (2.8-20.0) mg/dL Acetaminophen (10.0-30.0) ug/mL Plasma/Serum Alcohol (0-0.07) % 05/27/19 05/27/19 05/27/19 Range/Units 18:13 18:13 18:13 WBC (4.5-11.0) K/mm3 RBC (3.65-5.03) M/mm3 Hgb (11.8-15.2) gm/dl Hct (35.5-45.6) % MCV (84-94) fl MCH (28-32) pg MCHC (32-34) % RDW (13.2-15.2) % Plt Count (140-440) K/mm3 Lymph % (Auto) (13.4-35.0) % [place] % (Auto) (0.0-7.3) % Eos % (Auto) (0.0-4.3) % Baso % (Auto) (0.0-1.8) % Lymph # (1.2-5.4) K/mm3 Hawkins # (0.0-0.8) K/mm3 Eos # (0.0-0.4) K/mm3 Baso # (0.0-0.1) K/mm3 Seg Neutrophils % (40.0-70.0) % Seg Neutrophils # (1.8-7.7) K/mm3 PT (12.2-14.9) Sec. INR (0.87-1.13) APTT (24.2-36.6) Sec. Sodium (137-145) mmol/L Potassium (3.6-5.0) mmol/L Chloride (98-107) mmol/L Carbon Dioxide (22-30) mmol/L Anion Gap mmol/L BUN (9-20) mg/dL Creatinine (0.8-1.5) mg/dL Estimated GFR ml/min BUN/Creatinine Ratio % Glucose (75-100) mg/dL Lactic Acid (0.7-2.0) mmol/L Calcium (8.4-10.2) mg/dL Total Bilirubin (0.1-1.2) mg/dL AST (5-40) units/L ALT (7-56) units/L Alkaline Phosphatase (35-129) units/L Ammonia (25-60) umol/L Total Protein (6.3-8.2) g/dL Albumin (3.9-5) g/dL Albumin/Globulin Ratio % TSH 0.643 (0.270-4.200) mlU/mL Urine Color (Yellow) Urine Turbidity (Clear) Urine pH (5.0-7.0) Ur Specific [place] (1.003-1.030) Urine Protein (Negative) mg/dL Urine Glucose (UA) (Negative) mg/dL Urine Ketones (Negative) mg/dL Urine Blood (Negative) Urine Nitrite (Negative) Urine Bilirubin (Negative) Urine Urobilinogen (<2.0) mg/dL Ur Leukocyte Esterase (Negative) Urine WBC (Auto) (0.0-6.0) /HPF Urine RBC (Auto) (0.0-6.0) /HPF Urine Mucus /HPF Salicylates < 0.3 L (2.8-20.0) mg/dL Acetaminophen < 5.0 L (10.0-30.0) ug/mL Plasma/Serum Alcohol (0-0.07) % 05/27/19 Range/Units 18:13 WBC (4.5-11.0) K/mm3 RBC (3.65-5.03) M/mm3 Hgb (11.8-15.2) gm/dl Hct (35.5-45.6) % MCV (84-94) fl MCH (28-32) pg MCHC (32-34) % RDW (13.2-15.2) % Plt Count (140-440) K/mm3 Lymph % (Auto) (13.4-35.0) % [place] % (Auto) (0.0-7.3) % Eos % (Auto) (0.0-4.3) % Baso % (Auto) (0.0-1.8) % Lymph # (1.2-5.4) K/mm3 [place] # (0.0-0.8) K/mm3 Eos # (0.0-0.4) K/mm3 Baso # (0.0-0.1) K/mm3 Seg Neutrophils % (40.0-70.0) % Seg Neutrophils # (1.8-7.7) K/mm3 PT (12.2-14.9) Sec. INR (0.87-1.13) APTT (24.2-36.6) Sec. Sodium (137-145) mmol/L Potassium (3.6-5.0) mmol/L Chloride (98-107) mmol/L Carbon Dioxide (22-30) mmol/L Anion Gap mmol/L BUN (9-20) mg/dL Creatinine (0.8-1.5) mg/dL Estimated GFR ml/min BUN/Creatinine Ratio % Glucose (75-100) mg/dL Lactic Acid (0.7-2.0) mmol/L Calcium (8.4-10.2) mg/dL Total Bilirubin (0.1-1.2) mg/dL AST (5-40) units/L ALT (7-56) units/L Alkaline Phosphatase (35-129) units/L Ammonia (25-60) umol/L Total Protein (6.3-8.2) g/dL Albumin (3.9-5) g/dL Albumin/Globulin Ratio % TSH (0.270-4.200) mlU/mL Urine Color (Yellow) Urine Turbidity (Clear) Urine pH (5.0-7.0) Ur Specific [place] (1.003-1.030) Urine Protein (Negative) mg/dL Urine Glucose (UA) (Negative) mg/dL Urine Ketones (Negative) mg/dL Urine Blood (Negative) Urine Nitrite (Negative) Urine Bilirubin (Negative) Urine Urobilinogen (<2.0) mg/dL Ur Leukocyte Esterase (Negative) Urine WBC (Auto) (0.0-6.0) /HPF Urine RBC (Auto) (0.0-6.0) /HPF Urine Mucus /HPF Salicylates (2.8-20.0) mg/dL Acetaminophen (10.0-30.0) ug/mL Plasma/Serum Alcohol < 0.01 (0-0.07) % - Radiology Data Radiology results: report reviewed - Medical Decision Making CT Melina of the head and neck were ordered at proximately 5 PM I did not find out until 9:[address] that is capable of doing angiograms was not working. Critical care attestation.: If time is entered above; I have spent that time in minutes in the direct care of this critically ill patient, excluding procedure time. ED Disposition Clinical Impression: AMS (altered mental status), Weakness Disposition: OP ADMIT IP TO THIS HOSP Is pt being admited?: Yes Does the pt Need Aspirin: No Condition: Fair Referrals: ALEC GIMENEZ MD [Primary Care Provider] - 3-5 Days - Assessment Assessment Interval: Baseline - Level of Consciousness 1a. Level of Consciousness: alert/keenly responsive - LOC Questions 1b. LOC Questions: answers both correctly - LOC Command 1c. LOC Commands: performs tasks correctly - Best Gaze 2. Best Gaze: normal - Visual 3. Visual: no visual loss - Facial Palsy 4. Facial Palsy: normal symmetrical movement - Motor Arm 5a. Motor Arm Left: no drift 5b. Motor Arm Right: drift - Motor Leg 6a. Motor Leg Left: no drift 6b. Motor Leg Right: drift - Limb Ataxia 7. Limb Ataxia: absent - Sensory 8. Sensory: normal - Best Language 9. Best Language: no aphasia - Dysarthria 10. Dysarthria: normal - Extinction and Inattention 11. Extinction/Inattention: no abnormality - Scoring Total Score: 2 Stroke Severity: Minor Stroke
--- NOTE | 2019-05-27 17:52 | XRay Report ---
CHEST 1 VIEW INDICATION: MAIN: Altered Mental Status; EMS reported pt with AMS that started today. Vomitted en route. IV site initiated. . COMPARISON: 06/17/2018 FINDINGS: Support devices: None. Heart: Normal. Lungs/Pleura: No acute pulmonary or pleural findings. IMPRESSION: 1. No acute findings. Signer Name: Tigre Graff MD Signed: 05/27/2019 5:48 PM Workstation Name: [id number]
[2019-05-27 18:33] LABS: Basophils # (Auto) 0.1 K/mm3 (0.0-0.1); Basophils % (Auto) 0.6 % (0.0-1.8); Eosinophils % (Auto) 0.1 % (0.0-4.3); Hematocrit 45.8 % (35.5-45.6); Hemoglobin 15.5 gm/dl (11.8-15.2); Lymphocytes # (Auto) 0.9 K/mm3 (1.2-5.4); Lymphocytes % (Auto) 7.4 % (13.4-35.0); Mean Corpuscular HGB Conc 34 % (32-34); Mean Corpuscular Volume 100 fl (84-94); Monocytes # (Auto) 0.5 K/mm3 (0.0-0.8); Monocytes % (Auto) 4.1 % (0.0-7.3); Platelet Count 240 K/mm3 (140-440); Red Blood Count 4.59 M/mm3 (3.65-5.03); Red Cell Distribution Width 13.8 % (13.2-15.2)
[2019-05-27 18:39] LABS: Bilirubin,Urine NEG (Negative); Blood,Urine NEG (Negative); Color,Urine Yellow (Yellow); Mucus,Urine FEW /HPF; Protein,Urine <15 mg/dL mg/dL (Negative); Urobilinogen,Urine < 2.0 mg/dL (<2.0)
--- NOTE | 2019-05-27 18:42 | Cat Scan Report ---
CT BRAIN: 05/27/2019 INDICATION / CLINICAL INFORMATION: ams. COMPARISON: 06/17/2018 FINDINGS: BRAIN/INTRACRANIAL STRUCTURES: Unenhanced CT images of the brain demonstrate no evidence of acute int racranial abnormality. Ventricles and sulci are normal in size and shape. There is no evidence of ischemic injury, demyelination, hemorrhage, or mass. There are no abnormal ex tra-axial fluid collections. EXTRACRANIAL STRUCTURES: Unremarkable. IMPRESSION: No acute abnormality. No change when compared to 06/17/2018. All CT scans at this location are performed using dose reduction to ALARA by means of automated expos ure control. Signer Name: Dmitri Zamora MD Signed: 05/27/2019 6:37 PM Workstation Name: [id number]
[2019-05-27 18:43] LABS: INR 0.97 (0.87-1.13)
[2019-05-27 18:44] LABS: Partial Thromboplastin Time 26.9 Sec. (24.2-36.6)
[2019-05-27 18:57] LABS: Alanine Aminotransferase 14 units/L (7-56); Albumin 4.3 g/dL (3.9-5); BUN/Creatinine Ratio 22; Blood Urea Nitrogen 11 mg/dL (9-20); Calcium 8.9 mg/dL (8.4-10.2); Hemolysis Index 55
[2019-05-27] MEDS ORDERED: ASPIRIN 81 MG TAB CHEW PO ONE (23:08)
[2019-05-27] MEDS ORDERED: MORPHINE 2 MG/1 ML INJ IV PRN (23:44)
[2019-05-27] MEDS ORDERED: PROMETHAZINE 25 MG RECT SUPP PR PRN (23:44)
[2019-05-27] MEDS ORDERED: ONDANSETRON 4 MG/2 ML INJ IV PRN (23:44)
[2019-05-27] MEDS ORDERED: METOCLOPRAMIDE 10 MG TAB PO PRN (23:44)
[2019-05-27] MEDS ORDERED: MAGNESIUM HYDROXIDE (MOM) ORAL LIQD UDC PO PRN (23:44)
[2019-05-27] MEDS ORDERED: ACETAMINOPHEN 325 MG TAB PO PRN (23:44)
--- NOTE | 2019-05-27 23:55 | History and Physical Report ---
History of Present Illness Date of examination: 05/27/19 Date of admission: 05/27/19 23:13 Chief complaint: Altered Mental sttus, Headache History of present illness: 58-year-old male with known history of hypertension presents to the emergency room today with confusion and generalized weakness. Patient also indicates that he has had some headache. He was doing quite well about 24 hours ago but woke up to a headache, generalized weakness specially on the right upper right lower extremity, and confusion. He denies any fever or chills, no chest pain or shortness of breath, no nausea vomiting. He denies having similar problems in the past. Work-up in the emergency room including CT scan of the head so far has been negative. Patient is being worked up for possible CVA. Past History Past Medical History: hypertension, seizures Past Surgical History: bowel surgery Social history: smoking (Current everyday smoker) Family history: diabetes (Sister has Diabetes.), hypertension Medications and Allergies Allergies Allergy/AdvReac Type Severity Reaction Status Date / Time No Known Allergies Allergy Verified 08/10/17 11:08 Home Medications Medication Instructions Recorded Confirmed Last Taken Type Amlodipine Besylate [Norvasc] 10 mg PO QDAY 06/17/18 05/28/19 06/16/18 History Active Meds: Active Medications Acetaminophen (Tylenol) 650 mg PO Q4H PRN PRN Reason: Pain, Mild (1-3) Aspirin (Aspirin) 325 mg PO QDAY FIDELIA Bisacodyl (Dulcolax) 10 mg NE QDAY PRN PRN Reason: Constipation Magnesium Hydroxide (Milk Of Magnesia) 30 ml PO Q4H PRN PRN Reason: Constipation Metoclopramide HCl (Reglan) 10 mg PO Q6H PRN PRN Reason: Nausea And Vomiting Morphine Sulfate (Morphine) 2 mg IV Q4H PRN PRN Reason: Pain, Moderate (4-6) Ondansetron HCl (Zofran) 4 mg IV Q8H PRN PRN Reason: Nausea And Vomiting Promethazine HCl (Phenergan) 25 mg NE Q6H PRN PRN Reason: Nausea And Vomiting Sodium Chloride (Sodium Chloride Flush Syringe 10 Ml) 10 ml INJ PRN PRN PRN Reason: LINE FLUSH Review of Systems Constitutional: no fever, no chills Cardiovascular: no chest pain, no palpitations Respiratory: no cough, no shortness of breath Gastrointestinal: no abdominal pain, no nausea, no vomiting, no diarrhea Genitourinary Male: no dysuria, no hematuria Musculoskeletal: no neck pain, no low back pain Integumentary: no rash, no pruritis Neurological: weakness, headaches, confusion, no change in speech Exam - Constitutional Vitals: Temp Pulse Resp BP Pulse Ox 98.6 F 54 L 0 L 181/87 87 05/27/19 16:10 05/27/19 21:01 05/27/19 21:01 05/27/19 22:17 05/27/19 22:17 General appearance: Present: no acute distress, well-nourished - EENT Eyes: Present: PERRL, EOM intact ENT: hearing intact, clear oral mucosa, dentition normal - Neck Neck: Present: supple, normal ROM - Respiratory Respiratory effort: normal Respiratory: bilateral: CTA - Cardiovascular Rhythm: regular Heart Sounds: Present: S1 & S2 - Extremities Extremities: no ischemia, pulses intact, No edema, Full ROM Peripheral Pulses: within normal limits - Abdominal General gastrointestinal: Present: soft, non-tender, non-distended - Integumentary Integumentary: Present: clear, warm, dry - Musculoskeletal Musculoskeletal: right sided weakness - Psychiatric Psychiatric: appropriate mood/affect, intact judgment & insight, cooperative - Neurologic Neurologic: CNII-XII intact, moves all extremities Results - Labs CBC & Chem 7: 05/27/19 18:13 05/27/19 17:50 Labs: Abnormal lab results 05/27/19 05/27/19 05/27/19 Range/Units 17:50 18:13 18:13 WBC 12.2 H (4.5-11.0) K/mm3 Hgb 15.5 H (11.8-15.2) gm/dl Hct 45.8 H (35.5-45.6) % MCV 100 H (84-94) fl MCH 34 H (28-32) pg Lymph % (Auto) 7.4 L (13.4-35.0) % Lymph # 0.9 L (1.2-5.4) K/mm3 Seg Neutrophils % 87.8 H (40.0-70.0) % Seg Neutrophils # 10.7 H (1.8-7.7) K/mm3 Carbon Dioxide 20 L (22-30) mmol/L Creatinine 0.5 L (0.8-1.5) mg/dL Salicylates < 0.3 L (2.8-20.0) mg/dL Acetaminophen (10.0-30.0) ug/mL 05/27/19 Range/Units 18:13 WBC (4.5-11.0) K/mm3 Hgb (11.8-15.2) gm/dl Hct (35.5-45.6) % MCV (84-94) fl MCH (28-32) pg Lymph % (Auto) (13.4-35.0) % Lymph # (1.2-5.4) K/mm3 Seg Neutrophils % (40.0-70.0) % Seg Neutrophils # (1.8-7.7) K/mm3 Carbon Dioxide (22-30) mmol/L Creatinine (0.8-1.5) mg/dL Salicylates (2.8-20.0) mg/dL Acetaminophen < 5.0 L (10.0-30.0) ug/mL Assessment and Plan - Patient Problems (1) AMS (altered mental status) Current Visit: Yes Status: Acute Plan to address problem: Etiology is unclear. We rule out CVA. Patient placed on daily aspirin. We will place a consult to neurology for further evaluation. (2) Weakness Current Visit: Yes Status: Acute Plan to address problem: Patient will be worked up for CVA. We await neurology evaluation and recommendation. (3) Headache Current Visit: Yes Status: Acute Plan to address problem: We will place on analgesic medications as needed. (4) DVT prophylaxis Current Visit: Yes Status: Acute Plan to address problem: Patient placed on subcutaneous heparin. (5) Full code status Current Visit: Yes Status: Acute
[2019-05-28] MEDS ORDERED: ASPIRIN 325 MG TAB ONE (00:19)
[2019-05-28] MEDS ORDERED: ASPIRIN 81 MG TAB CHEW ONE (00:30)
[2019-05-28] MEDS ORDERED: MORPHINE 2 MG/1 ML INJ ONE (00:30)
[2019-05-28 06:13] LABS: Chol/HDL Ratio 3.38 %
--- NOTE | 2019-05-28 10:01 | Magnetic Resonance Report ---
MRI BRAIN 05/28/2019 INDICATION / CLINICAL INFORMATION: MAIN: stroke, CONFUSION, RT SIDED WEAKNESS. TECHNIQUE: Multiplanar, multisequence MR images of the brain were obtained. COMPARISON: CT brain 05/27/2019 FINDINGS: BRAIN / INTRACRANIAL CONTENTS: Unenhanced MR images of the brain demonstrate no evidence of acute int racranial abnormality. Ventricles and sulci are normal in size and shape for a patient of this age. There is no MR evidence of acute ischemic injury, hemorrhage, or mass. There are no abnormal extra-ax ial fluid collections. A few small white matter T2 weighted hyperintensities are noted in the cerebra l hemispheric white matter, with a nonspecific appearance. EXTRACRANIAL: Unremarkable CRANIOCERVICAL JUNCTION: No significant abnormality. VASCULAR FLOW-VOIDS: No significant abnormality. IMPRESSION: No significant abnormality. Signer Name: Dmitri Zamora MD Signed: 05/28/2019 9:56 AM Workstation Name: [id number]
[2019-05-28] MEDS: amLODIPine 10 MG TAB PO SCH (10:40)
[2019-05-28] MEDS: ASPIRIN 325 MG TAB PO SCH (10:40)
--- NOTE | 2019-05-28 11:23 | Progress Note ---
Assessment and Plan Assessment and plan: CVA. Patient complaining of right upper extremity weakness. CT scan of the head negative MRI brain negative. Neurology evaluated the patient and ordered CTA of the brain for further evaluation. Hypertension. Continue antihypertensive medications. Seizure disorder. Continue AEDs and seizure precautions. History Interval history: No new issues Hospitalist Physical - Constitutional Vitals: Temp Pulse Resp BP Pulse Ox 98.7 F 46 L 17 139/70 94 05/28/19 05:53 05/28/19 10:40 05/28/19 05:53 05/28/19 10:40 05/28/19 05:53 General appearance: Present: no acute distress, well-nourished - EENT Eyes: Present: PERRL, EOM intact ENT: hearing intact, clear oral mucosa, dentition normal - Neck Neck: Present: supple, normal ROM - Respiratory Respiratory effort: normal Respiratory: bilateral: CTA - Cardiovascular Rhythm: regular Heart Sounds: Present: S1 & S2. Absent: gallop, rub - Extremities Extremities: no ischemia, No edema, Full ROM - Abdominal General gastrointestinal: soft, non-tender, non-distended, normal bowel sounds - Integumentary Integumentary: Present: clear, warm, dry - Neurologic Neurologic: CNII-XII intact, moves all extremities Results - Labs CBC & Chem 7: 05/27/19 18:13 05/27/19 17:50 Labs: Laboratory Last Values WBC 12.2 K/mm3 (4.5-11.0) H 05/27/19 18:13 RBC 4.59 M/mm3 (3.65-5.03) 05/27/19 18:13 Hgb 15.5 gm/dl (11.8-15.2) H 05/27/19 18:13 Hct 45.8 % (35.5-45.6) H 05/27/19 18:13 MCV 100 fl (84-94) H 05/27/19 18:13 MCH 34 pg (28-32) H 05/27/19 18:13 MCHC 34 % (32-34) 05/27/19 18:13 RDW 13.8 % (13.2-15.2) 05/27/19 18:13 Plt Count 240 K/mm3 (140-440) 05/27/19 18:13 Lymph % (Auto) 7.4 % (13.4-35.0) L 05/27/19 18:13 [place] % (Auto) 4.1 % (0.0-7.3) 05/27/19 18:13 Eos % (Auto) 0.1 % (0.0-4.3) 05/27/19 18:13 Baso % (Auto) 0.6 % (0.0-1.8) 05/27/19 18:13 Lymph # 0.9 K/mm3 (1.2-5.4) L 05/27/19 18:13 [place] # 0.5 K/mm3 (0.0-0.8) 05/27/19 18:13 Eos # 0.0 K/mm3 (0.0-0.4) 05/27/19 18:13 Baso # 0.1 K/mm3 (0.0-0.1) 05/27/19 18:13 Seg Neutrophils % 87.8 % (40.0-70.0) H 05/27/19 18:13 Seg Neutrophils # 10.7 K/mm3 (1.8-7.7) H 05/27/19 18:13 PT 13.0 Sec. (12.2-14.9) 05/27/19 18:13 INR 0.97 (0.87-1.13) 05/27/19 18:13 APTT 26.9 Sec. (24.2-36.6) 05/27/19 18:13 Sodium 137 mmol/L (137-145) 05/27/19 17:50 Potassium 4.3 mmol/L (3.6-5.0) 05/27/19 17:50 Chloride 103.7 mmol/L (98-107) 05/27/19 17:50 Carbon Dioxide 20 mmol/L (22-30) L 05/27/19 17:50 Anion Gap 18 mmol/L 05/27/19 17:50 BUN 11 mg/dL (9-20) 05/27/19 17:50 Creatinine 0.5 mg/dL (0.8-1.5) L 05/27/19 17:50 Estimated GFR > 60 ml/min 05/27/19 17:50 BUN/Creatinine Ratio 22 % 05/27/19 17:50 Glucose 97 mg/dL (75-100) 05/27/19 17:50 Lactic Acid 0.90 mmol/L (0.7-2.0) 05/27/19 18:13 Calcium 8.9 mg/dL (8.4-10.2) 05/27/19 17:50 Total Bilirubin 0.30 mg/dL (0.1-1.2) 05/27/19 17:50 AST 21 units/L (5-40) 05/27/19 17:50 ALT 14 units/L (7-56) 05/27/19 17:50 Alkaline Phosphatase 73 units/L (35-129) 05/27/19 17:50 Ammonia 60.0 umol/L (25-60) 05/27/19 18:13 Total Protein 7.1 g/dL (6.3-8.2) 05/27/19 17:50 Albumin 4.3 g/dL (3.9-5) 05/27/19 17:50 Albumin/Globulin Ratio 1.5 % 05/27/19 17:50 Triglycerides 98 mg/dL (2-149) 05/28/19 05:32 Cholesterol 159 mg/dL (50-199) 05/28/19 05:32 LDL Cholesterol Direct 109 mg/dL (50-130) 05/28/19 05:32 HDL Cholesterol 47 mg/dL (40-59) 05/28/19 05:32 Cholesterol/HDL Ratio 3.38 % 05/28/19 05:32 TSH 0.643 mlU/mL (0.270-4.200) 05/27/19 18:13 Urine Color Yellow (Yellow) 05/27/19 17:50 Urine Turbidity Clear (Clear) 05/27/19 17:50 Urine pH 7.0 (5.0-7.0) 05/27/19 17:50 Ur Specific [place] 1.013 (1.003-1.030) 05/27/19 17:50 Urine Protein <15 mg/dl mg/dL (Negative) 05/27/19 17:50 Urine Glucose (UA) Neg mg/dL (Negative) 05/27/19 17:50 Urine Ketones Neg mg/dL (Negative) 05/27/19 17:50 Urine Blood Neg (Negative) 05/27/19 17:50 Urine Nitrite Neg (Negative) 05/27/19 17:50 Urine Bilirubin Neg (Negative) 05/27/19 17:50 Urine Urobilinogen < 2.0 mg/dL (<2.0) 05/27/19 17:50 Ur Leukocyte Esterase Neg (Negative) 05/27/19 17:50 Urine WBC (Auto) 1.0 /HPF (0.0-6.0) 05/27/19 17:50 Urine RBC (Auto) 5.0 /HPF (0.0-6.0) 05/27/19 17:50 Urine Mucus Few /HPF 05/27/19 17:50 Salicylates < 0.3 mg/dL (2.8-20.0) L 05/27/19 18:13 Acetaminophen < 5.0 ug/mL (10.0-30.0) L 05/27/19 18:13 Plasma/Serum Alcohol < 0.01 % (0-0.07) 05/27/19 18:13 Vega/IV: Voiding Method Urinal IV Catheter Type [Left INT / Saline Lock Antecubital] Active Medications - Current Medications Current Medications: Generic Name Dose Route Start Last Admin Trade Name Freq PRN Reason Stop Dose Admin Acetaminophen 650 mg 05/27/19 23:44 Tylenol PO Q4H PRN Pain, Mild (1-3) Amlodipine Besylate 10 mg 05/28/19 10:00 05/28/19 10:40 Amlodipine PO 10 mg QDAY FIDELIA Administration Aspirin 325 mg 05/28/19 10:00 05/28/19 10:40 Aspirin PO 325 mg QDAY FIDELIA Administration Bisacodyl 10 mg 05/27/19 23:44 Dulcolax OR QDAY PRN Constipation Heparin Sodium (Porcine) 5,000 unit 05/28/19 14:00 Heparin SUB-Q Q8HR FIDELIA Magnesium Hydroxide 30 ml 05/27/19 23:44 Milk Of Magnesia PO Q4H PRN Constipation Metoclopramide HCl 10 mg 05/27/19 23:44 Reglan PO Q6H PRN Nausea And Vomiting Morphine Sulfate 2 mg 05/27/19 23:44 05/28/19 00:30 Morphine IV 2 mg Q4H PRN Administration Pain, Moderate (4-6) Ondansetron HCl 4 mg 05/27/19 23:44 Zofran IV Q8H PRN Nausea And Vomiting Promethazine HCl 25 mg 05/27/19 23:44 Phenergan OR Q6H PRN Nausea And Vomiting Sodium Chloride 10 ml 05/27/19 23:44 Sodium Chloride Flush Syringe 10 Ml IV PRN PRN LINE FLUSH Nutrition/Malnutrition Assess - Dietary Evaluation Nutrition/Malnutrition Findings: Nutrition Notes Start: 05/28/19 11:00 Freq: Status: Active Protocol: Document 05/28/19 11:00 LP (Rec: 05/28/19 11:01 LP [email or web address]) Nutrition Notes Need for Assessment generated from: MD Order Initial or Follow up Brief Note Current Diagnosis Hypertension Other Pertinent Diagnosis AMS, Seizure Current Diet Cardiac Weight Status Overweight Subjective/Other Information Consult for diet education. Pt denies need for diet education and following cardiac diet at home. Pt states he did not like the eggs this AM. Pt food preferences noted. Nutrition Intervention Revisit per MD consult or patient Sign Off request:
--- NOTE | 2019-05-28 14:46 | Cat Scan Report ---
CTA HEAD AND NECK WITH CONTRAST HISTORY: Possible stroke, right-sided weakness. COMPARISON: None. TECHNIQUE: Routine CTA of the head and neck is performed. 3-D/MIP reformats were postprocessed. Perc entage stenosis is determined by direct quantitative measurements of diseased internal carotid artery diameter compared with normal distal internal carotid artery reference segments or by criteria simil ar to NASCET where applicable. CONTRAST: 100 ml of Isovue 370 FINDINGS: HEAD: No occlusion, significant stenosis, aneurysm, or dissection involving the median large intracranial a rteries. The [place] appears complete with anterior communicating and posterior communicating arterie s noted. The vertebral arteries are codominant. No abnormal intracranial enhancement. NECK: Aortic arch: A two-vessel aortic arch is incidentally noted with the left common carotid artery arisi ng from the brachiocephalic artery, a normal anatomic variant. Cervical vertebral arteries: No evidence of occlusion, significant stenosis, or dissection. Common carotid arteries: There is mild narrowing of the right ICA, just distal to the carotid bifurca tion due to calcified plaque formation. The degree of narrowing is estimated at 40%. Minimal intimal thickening and calcified plaque formation in the left proximal ICA without evidence of significant st enosis. Additional findings: Upper lobe predominant centrilobular emphysematous change within both lungs. Mod erate degenerative change in lower cervical spine spanning C5-C7. IMPRESSION: No evidence of occlusion, significant stenosis, or aneurysm involving the medium and large intracrani al arteries. No evidence of significant stenosis involving the carotid arteries. There is mild narrowing of the ri ght proximal ICA, just distal to the carotid bifurcation, with degree of narrowing estimated at 40%. Signer Name: Jc Krishnamurthy MD Signed: 05/28/2019 2:42 PM Workstation Name: [id number]
[2019-05-28] MEDS: HEPARIN 5,000 UNIT/1 ML VIAL SUB-Q SCH ×2 (16:54→22:56)
--- NOTE | 2019-05-28 22:22 | Consultation ---
History of Present Illness Consult date: 05/28/19 Reason for Consult: Altered mental status Chief complaint: Altered mental status History of present illness: Patient is a 58 y/o man w/ a h/o HTN. Yesterday, the patient had episodes described by his as confusion, during which he was making sounds but not making sense, and also purposeless movements of arms and legs. She did not notice any convulsions or loss of consciousness yesterday. She stated that he also went to sleep soon after each episode. He woke up 4-5 times during the day, however remained confused each time he woke up. Today, patient is back to baseline of mental status, and does not recall the events from yesterday. Patient's states that he has been having similar episodes about 1-2 times per month for about a year. She states that he has had a similar episode in the past during which he has lost bladder control, and has also had an episode during which he lost consciousness and bit his tongue. Patient does not recall those episodes. Past History Past Medical History: hypertension Past Surgical History: bowel surgery Social history: smoking (Current everyday smoker) Family history: diabetes (Sister has Diabetes.), hypertension Medications and Allergies Allergies Allergy/AdvReac Type Severity Reaction Status Date / Time No Known Allergies Allergy Verified 08/10/17 11:08 Home Medications Medication Instructions Recorded Confirmed Last Taken Type Amlodipine Besylate [Norvasc] 10 mg PO QDAY 06/17/18 05/28/19 06/16/18 History Active Meds: Active Medications Acetaminophen (Tylenol) 650 mg PO Q4H PRN PRN Reason: Pain, Mild (1-3) Amlodipine Besylate (Amlodipine) 10 mg PO QDAY [facility] Last Admin: 05/28/19 10:40 Dose: 10 mg Documented by: Aspirin (Aspirin) 325 mg PO QDAY [facility] Last Admin: 05/28/19 10:40 Dose: 325 mg Documented by: Bisacodyl (Dulcolax) 10 mg MT QDAY PRN PRN Reason: Constipation Heparin Sodium (Porcine) (Heparin) 5,000 unit SUB-Q Q8HR [facility] Last Admin: 05/28/19 16:54 Dose: 5,000 unit Documented by: Magnesium Hydroxide (Milk Of Magnesia) 30 ml PO Q4H PRN PRN Reason: Constipation Metoclopramide HCl (Reglan) 10 mg PO Q6H PRN PRN Reason: Nausea And Vomiting Morphine Sulfate (Morphine) 2 mg IV Q4H PRN PRN Reason: Pain, Moderate (4-6) Last Admin: 05/28/19 00:30 Dose: 2 mg Documented by: Ondansetron HCl (Zofran) 4 mg IV Q8H PRN PRN Reason: Nausea And Vomiting Promethazine HCl (Phenergan) 25 mg MT Q6H PRN PRN Reason: Nausea And Vomiting Sodium Chloride (Sodium Chloride Flush Syringe 10 Ml) 10 ml IV PRN PRN PRN Reason: LINE FLUSH Review of Systems All systems: negative Neurological: change in mentation Physical Examination - Vital Signs Vital Signs: Vital Signs Pulse Resp 62 21 05/27/19 16:03 05/27/19 16:03 - Physical Exam Narrative exam: Patient is alert, awake, oriented x4, follows complex commands. No dysarthria or aphasia noted. PERRL, EOMI, VFF, tongue midline, bilaterally intact to LT, no facial weakness noted. 5/5 strength in all extremities. Bilaterally intact light touch. Bilaterally intact to FTN and HTS. 2+ reflexes throughout. - Constitutional General appearance: comfortable - EENT EENT: Present: ATNC, PERRL, mucous membranes moist - Respiratory Respiratory: Present: lungs clear, normal breath sounds - Cardiovascular Cardiovascular: Present: regular rate, normal S1, normal S2 Extremities: Present: no clubbing, cyanosis, no inflammation - Gastrointestinal Gastrointestinal: Present: normoactive bowel sounds, soft, non-tender - Integumentary Integumentary: Present: normal - Musculoskeletal Musculoskeletal: Present: no fluid collection, no pain - Psychiatric Psychiatric: Present: mood/affect appropriate Results - Laboratory Findings CBC and BMP: 05/27/19 18:13 05/27/19 17:50 Abnormal Lab Findings: Abnormal Labs 05/27/19 05/27/19 05/27/19 17:50 18:13 18:13 WBC 12.2 H Hgb 15.5 H Hct 45.8 H MCV 100 H MCH 34 H Lymph % (Auto) 7.4 L Lymph # 0.9 L Seg Neutrophils % 87.8 H Seg Neutrophils # 10.7 H Carbon Dioxide 20 L Creatinine 0.5 L Salicylates < 0.3 L Acetaminophen 05/27/19 18:13 WBC Hgb Hct MCV MCH Lymph % (Auto) Lymph # Seg Neutrophils % Seg Neutrophils # Carbon Dioxide Creatinine Salicylates Acetaminophen < 5.0 L Assessment and Plan Patient is a 58 y/o man w/ a h/o HTN who p/w altered mental status. According to the patient's clinical findings, it is likely that the patient has seizures. In support of this diagnosis, patient is noted to have post-ictal confusion and lethargy. Further, he has had similar episodes in the past year associated with loss of bladder control as well as loss of consciousness and tongue biting. Plan: 1. Seizures: - MRI brain: no acute abnormality: - CT head: no acute abnormality - EEG: pending - According to history provided by patient's , these episodes are likely seizures. - Start patient on keppra 750mg BID. Discussed risks/benefits/side effects of this medication, and patient agreed to taking this. - No driving until cleared by DMV/DPS. Patient understood and accepted this. Further discussed seizure precations with patient and his . - If patient is noted to have a seizure, recommend giving ativan 1mg IV stat. If seizure persists for more than 2 minutes, can repeat x1. - Will continue to monitor patient. Thank you for allowing me to take part in the care of this patient. Con Ferguson MD Neurology
[2019-05-28] MEDS: levETIRAcetam 500 MG TAB PO SCH (22:56)
[2019-05-29] MEDS: HEPARIN 5,000 UNIT/1 ML VIAL SUB-Q SCH ×2 (05:38→14:30)
[2019-05-29] MEDS: ASPIRIN 325 MG TAB PO SCH (09:52)
[2019-05-29] MEDS: levETIRAcetam 500 MG TAB PO SCH (09:53)
[2019-05-29] MEDS: amLODIPine 10 MG TAB PO SCH (09:54)
--- NOTE | 2019-05-29 10:33 | Discharge Summary ---
Providers - Providers Date of Admission: 05/27/19 23:13 Date of discharge: 05/29/19 Attending physician: TAVO DIAZ 05/27/19 Consult to Physician [CONS] Routine Comment: Consulting Provider: FLORY ULLOA Physician Instructions: Reason For Exam: Right sided weakness. R/O CVA 05/27/19 23:44 Consult to Dietitian/Nutrition [CONS] Routine Physician Instructions: Reason For Exam: Reason for Consult: Nutrition Recommendations Reason for Consult: Diet education Occupational Therapy Evaluate and Treat [CONS] Routine Comment: Reason For Exam: Neuro deficits Physical Therapy Evaluation and Treat [CONS] Routine Comment: Reason For Exam: Neuro deficits Speech Therapy Evaluation and Treat [CONS] Routine Reason For Exam: swallow eval [facility] Reason for admission: AMS Condition: Fair Hospital course: 58-year-old male with known history of hypertension presents to the emergency room today with confusion and generalized weakness. Patient also indicated that he has had some headache. The patient underwent CVA work-up which was found to be negative with CT scan and MRI of brain negative. Patient had no unilateral signs or symptoms. Neurology was consulted and based on the patient's history felt like etiology was likely secondary to seizures. Keppra was started at 750 mg twice daily. Patient was noted to have no seizure activity during hospitalization. Neurology ordered EEG and will be discharged home after EEG. Dedicated discharge time 32 minutes Disposition: DC-01 TO HOME OR SELFCARE Time spent for discharge: 32 - Discharge Diagnoses (1) Seizure Status: Acute (2) AMS (altered mental status) Status: Acute (3) Full code status Status: Acute (4) Headache Status: Acute (5) Weakness Status: Acute Core Measure Documentation - Palliative Care Palliative Care/ Comfort Measures: Not Applicable - Core Measures Any of the following diagnoses?: none Exam - Constitutional Vitals: Temp Pulse Resp BP Pulse Ox 98.1 F 46 L 16 119/65 97 05/29/19 04:59 05/29/19 09:54 05/29/19 04:59 05/29/19 09:54 05/29/19 04:59 General appearance: Present: no acute distress, well-nourished - EENT Eyes: Present: PERRL ENT: hearing intact, clear oral mucosa - Neck Neck: Present: supple, normal ROM - Respiratory Respiratory effort: normal Respiratory: bilateral: CTA - Cardiovascular Heart Sounds: Present: S1 & S2. Absent: rub, click - Extremities Extremities: pulses symmetrical, No edema Peripheral Pulses: within normal limits - Abdominal General gastrointestinal: Present: soft, non-tender, non-distended, normal bowel sounds Male genitourinary: Present: normal - Integumentary Integumentary: Present: clear, warm, dry - Musculoskeletal Musculoskeletal: gait normal, strength equal bilaterally - Psychiatric Psychiatric: appropriate mood/affect, intact judgment & insight - Neurologic Neurologic: CNII-XII intact, moves all extremities Plan Activity: advance as tolerated Weight Bearing Status: Weight Bear as Tolerated Diet: regular [facility] - 3-5 Days FLORY ULLOA MD [Staff Physician] - 7 Days Prescriptions: levETIRAcetam [Keppra TAB] 750 mg PO BID #60 tablet
[2019-05-29 12:33] VITALS: BP 131/77
--- NOTE | 2019-05-29 18:41 | Electroencephalogram Report ---
Electroencephalogram EEG Date of exam: 05/29/19 History: Patient is a 58 y/o man w/ a h/o HTN who p/w altered mental status. Description: DESCRIPTION OF THE PROCEDURE: Electrodes were applied using Paste technique in positions dictated by International 10-20 system of placement. In addition to EEG data EKG and eye movements were recorded. DESCRIPTION OF ACTIVITIY: At the onset of this recording, the patient is lying supine. In the background we note an 8 Hz alpha posterior dominant rhythm that has an amplitude ranging 15-30uV. There is normal attenuation of the background rhythm with eye opening. Additional low voltage beta activity occurs symmetrically at the anterior head regions bilaterally. There are no asymmetries in amplitude or frequency between hemispheres. Intermittent photic stimulation was performed, and no photic drive noted. Hyperventilation was not performed. EKG lead showed a normal sinus rhythm. EEG Impression: 1) Normal awake and sleep activity. 2) No epileptiform activity or seizures were noted CLINICAL INTERPRETATION: This routine video EEG, performed during wakefulness and drowsiness is normal. [Note that a normal routine EEG does not rule out of the diagnosis of epilepsy. Should there be continued suspicion of seizures, a repeat study of longer duration can be considered.]
--- NOTE | 2019-05-29 18:48 | Progress Note ---
Assessment and Plan Patient is a 58 y/o man w/ a h/o HTN who p/w altered mental status. According to the patient's clinical findings, it is likely that the patient has seizures. In support of this diagnosis, patient is noted to have post-ictal confusion and l ethargy. Further, he has had similar episodes in the past year associated with loss of bladder control as well as loss of consciousness and tongue biting. Plan: 1. Seizures: - MRI brain: no acute abnormality: - CT head: no acute abnormality - EEG: No seizures or epileptiform activity. - According to history provided by patient's , these episodes are likely seizures. - Cont. patient on keppra 750mg BID. Discussed risks/benefits/side effects of this medication, and patient agreed to taking this. - No driving until cleared by DMV/DPS. Patient understood and accepted this. Further discussed seizure precations with patient and his . - If patient is noted to have a seizure, recommend giving ativan 1mg IV stat. If seizure persists for more than 2 minutes, can repeat x1. - Patient states that he has involuntary weight loss of 47 pounds over the last year. Recommend further workup per primary team and patient's outpatient PCP, including cancer screening. - Will sign off, as I am not covering neurology service over the weekend. Please consult neurologist covering the service over the weekend for further neurologic monitoring and management. Thank you for allowing me to take part in the care of this patient. Con Ferguson MD Neurology Subjective Date of service: 05/29/19 Principal diagnosis: Seizure Interval history: No acute events overnight. Objective - Exam Narrative Exam: Patient is alert, awake, oriented x4, follows complex commands. No dysarthria or aphasia noted. PERRL, EOMI, VFF, tongue midline, bilaterally intact to LT, no facial weakness noted. 5/5 strength in all extremities. Bilaterally intact light touch. Bilaterally intact to FTN and HTS. 2+ reflexes throughout. - Vital Sign Vital Signs - 12hr 05/29/19 05/29/19 05/29/19 09:54 12:17 14:00 Temperature 98.3 F Pulse Rate 46 L 59 L Pulse Rate [ 46 L Apical] Respiratory 20 Rate Blood Pressure 119/65 131/77 O2 Sat by Pulse 96 97 Oximetry - General Apperance Constitutional: comfortable - EENT EENT: ATNC, PERRL, mucous membranes moist - Respiratory Respiratory: lungs clear, normal breath sounds - Cardiovascular Cardiovascular: regular rate, normal S1, normal S2 Extremities: no clubbing, cyanosis, no inflammation - Gastrointestinal Gastrointestinal: normoactive bowel sounds, soft, non-tender - Integumentary Integumentary: normal - Musculoskeletal Musculoskeletal: no fluid collection, no pain - Psychiatric Psychiatric: mood/affect appropriate - Laboratory Findings CBC and BMP: 05/27/19 18:13 05/27/19 17:50 Abnormal Lab Findings: Abnormal Labs 05/27/19 05/27/19 05/27/19 17:50 18:13 18:13 WBC 12.2 H Hgb 15.5 H Hct 45.8 H MCV 100 H MCH 34 H Lymph % (Auto) 7.4 L Lymph # 0.9 L Seg Neutrophils % 87.8 H Seg Neutrophils # 10.7 H Carbon Dioxide 20 L Creatinine 0.5 L Salicylates < 0.3 L Acetaminophen 05/27/19 18:13 WBC Hgb Hct MCV MCH Lymph % (Auto) Lymph # Seg Neutrophils % Seg Neutrophils # Carbon Dioxide Creatinine Salicylates Acetaminophen < 5.0 L
== END 2019-05-29 17:14 | disposition home or self-care (01) ==
LOC: ED 15:53 → 3A 23:13
PROVIDERS: ADMIT Internal Medicine Geriatric Medicine; ATTEND Hospitalist
DX: R41.82 Altered mental status, unspecified (principal); R53.1 Weakness; I10 Essential (primary) hypertension; R56.9 Unspecified convulsions; F17.210 Nicotine dependence, cigarettes, uncomplicated; I95.9 Hypotension, unspecified
CPT/HCPCS: 36415; 70450; 70496; 70498; 70551; 71045; 80053; 80061; 81001; 82140; 82962; 84443; 85025; 85610; 85730; 92610; 93005; 93010; 93306; 95819; 96374; 96375; 96376; 97110; 97161; 97165; 97530; 99285; 99406; G0378; J1644; J2270; J2405; Q9967; 80320; G0480

== ENCOUNTER 2020-03-03 12:11 | Emergency (ER) | payer OTHER ==
[2020-03-03] MEDS ORDERED: oxyCODONE /ACETAMINOPHEN 5-325MG TAB PO ONE (13:39)
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
[2020-03-03 15:14] VITALS: BP 149/73
== END 2020-03-03 15:34 | disposition other institution (70) ==
LOC: ED 12:11
DX: T23.271A Burn of second degree of right wrist, initial encounter (principal); T23.201A Burn of second degree of right hand, unspecified site, initial encounter; I10 Essential (primary) hypertension; R56.9 Unspecified convulsions; F17.200 Nicotine dependence, unspecified, uncomplicated; Z98.890 Other specified postprocedural states; Z79.899 Other long term (current) drug therapy; X12.XXXA Contact with other hot fluids, initial encounter; Y93.89 Activity, other specified; Y92.89 Other specified places as the place of occurrence of the external cause; Y99.8 Other external cause status

== ENCOUNTER 2020-03-25 15:41 | Emergency (ER) | payer OTHER ==
[2020-03-25 16:10] VITALS: BP 153/98
--- NOTE | 2020-03-25 18:01 | Event Note ---
ED Screening Note Date of service: 03/25/20 Time: 18:00 ED Screening Note: 59-year-old -[place] male presents to the emergency room for abscess on his left shoulder near the [facility] for 2 weeks. Patient states that it started off as a very small pimple-like bump and now has gotten larger painful with brownish discharge. Patient denies any fever or chills. Patient has no past medical history. No allergies to medication takes no medications on a daily basis. This initial assessment/diagnostic orders/clinical plan/treatment(s) is/are subject to change based on patients health status, clinical progression and re- assessment by fellow clinical providers in the ED. Further treatment and workup at subsequent clinical providers discretion. Patient/guardian urged not to elope from the ED as their condition may be serious if not clinically assessed and managed. Initial orders include:
--- NOTE | 2020-03-25 18:57 | Emergency Department Report ---
Abscess Boil HPI - HPI Chief Complaint: Skin/Abscess/Foreign Body Stated Complaint: CYSST ON LEFT SHOULDER Duration: 4 Days History: Yes Pain, No Fever, No Purulent Drainage, No Numbness, No Foreign Body, No Previous History, No Insect Bite Home Medications: Home Medications Medication Instructions Recorded Confirmed Last Taken Amlodipine Besylate [Norvasc] 10 mg PO QDAY 06/17/18 05/28/19 06/16/18 Previous Rx's Medication Instructions Recorded Last Taken Type levETIRAcetam [Keppra TAB] 750 mg PO BID #60 tablet 05/29/19 Unknown Rx Acetaminophen/Codeine [Tylenol 1 tab PO Q6H PRN #12 tab 03/25/20 Unknown Rx /Codeine # 3 tab] Clindamycin [Clindamycin CAP] 300 mg PO Q8H #30 cap 03/25/20 Unknown Rx Sulfamethoxazole/Trimethoprim 1 each PO BID 10 Days #20 tablet 03/25/20 Unknown Rx [Bactrim DS TAB] Allergies/Adverse Reactions: Allergies Allergy/AdvReac Type Severity Reaction Status Date / Time No Known Allergies Allergy Verified 03/25/20 16:09 ED Review of Systems ROS: Stated complaint: CYSST ON LEFT SHOULDER Other details as noted in HPI Comment: All other systems reviewed and negative ED Past Medical Hx - Past Medical History Hx Hypertension: Yes Hx Congestive Heart Failure: No Hx Diabetes: No Hx Seizures: Yes Hx Asthma: No Hx COPD: No Hx HIV: No - Surgical History Additional Surgical History: Abdominal surgery - Social History Smoking Status: Current Every Day Smoker Substance Use Type: None - Medications Home Medications: Home Medications Medication Instructions Recorded Confirmed Last Taken Type Amlodipine Besylate [Norvasc] 10 mg PO QDAY 06/17/18 05/28/19 06/16/18 History levETIRAcetam [Keppra TAB] 750 mg PO BID #60 tablet 05/29/19 Unknown Rx Acetaminophen/Codeine [Tylenol 1 tab PO Q6H PRN #12 tab 03/25/20 Unknown Rx /Codeine # 3 tab] Clindamycin [Clindamycin CAP] 300 mg PO Q8H #30 cap 03/25/20 Unknown Rx Sulfamethoxazole/Trimethoprim 1 each PO BID 10 Days #20 tablet 03/25/20 Unknown Rx [Bactrim DS TAB] ED Abscess Boil Physical Exam - Exam General: Vital signs noted. No distress. Alert and acting appropriately. Size: 4 cm Exam: Yes Tenderness, Yes Fluctuance, Yes Surrounding Cellulites/Erythema, Yes Heart Murmur, Yes Normal Neurologic Exam, Yes Normal Circulation, No Lymphangitis, No Crepitation I & D Note - I & D Note I & D Note: DATE OF PROCEDURE: 03/25/2020. PREOPERATIVE DIAGNOSES: 1.soft tissue infection left shoulder. . POSTOPERATIVE DIAGNOSES: 1. ... ......soft tissue infection. Infection appeared to be contained to subcutaneous tissue and there was no evidence of necrotizing soft tissue infection including myonecrosis. OPERATION PERFORMED: Incision and drainage of ..... soft tissue abscess. Provider: See Mcadams PA-C. ANESTHESIA: Local. DESCRIPTION OF PROCEDURE: The patient was prepped and draped. Seropurulent, somewhat bloody fluid was noted. The infection appeared contained to a golf ball-sized area in the subcutaneous tissues above the fascia. There was no evidence of myonecrosis, penetration of the fascia or significant extent along the fascia of the infection. We cleaned the area with Betadine and then packed the wound .......... Dry dressings were applied. The patient appeared to tolerate the procedure well. ED Course Vital Signs 03/25/20 16:09 Temperature 98.8 F Pulse Rate 68 Respiratory 18 Rate Blood Pressure 153/98 O2 Sat by Pulse 99 Oximetry Critical care attestation.: If time is entered above; I have spent that time in minutes in the direct care of this critically ill patient, excluding procedure time. ED Medical Decision Making - Medical Decision Making 59-year-old -[place] male presents to the emergency room for abscess on his left shoulder near the [facility] for 2 weeks. Patient states that it started off as a very small pimple-like bump and now has gotten larger painful with brownish discharge. Patient denies any fever or chills. Patient has no past medical history. No allergies to medication takes no medications on a daily basis. Patient placed on clindamycin and Bactrim with Tylenol 3 for pain management. Discussed with patient to place warm compresses on abscess as the discharge is more of a cheesy foul-smelling thick discharge. ED Disposition Clinical Impression: Abscess of left shoulder Disposition: DC-01 TO HOME OR SELFCARE Is pt being admited?: No Does the pt Need Aspirin: No Condition: Stable Instructions: Skin Abscess, [id number] Additional Instructions: Complete antibiotics as prescribed. Tylenol or ibuprofen as needed for pain. Take Tylenol 3 as needed for excruciating pain do not operate heavy machinery while taking Tylenol 3. Prescriptions: Sulfamethoxazole/Trimethoprim [Bactrim DS TAB] 1 each PO BID 10 Days #20 tablet Clindamycin [Clindamycin CAP] 300 mg PO Q8H #30 cap Acetaminophen/Codeine [Tylenol /Codeine # 3 tab] 1 tab PO Q6H PRN #12 tab PRN Reason: Pain , Severe (7-10) Referrals: [facility] [Outside] - 3-5 Days Forms: Work/School Release Form(ED)
== END 2020-03-25 19:15 | disposition home or self-care (01) ==
LOC: ED 15:41
DX: L02.414 Cutaneous abscess of left upper limb (principal); I10 Essential (primary) hypertension; F17.200 Nicotine dependence, unspecified, uncomplicated; Z98.890 Other specified postprocedural states; Z79.899 Other long term (current) drug therapy
CPT/HCPCS: 99281

== ENCOUNTER 2020-12-14 09:48 | Emergency (ER) | payer OTHER ==
[2020-12-14] MEDS ORDERED: LIDOCAINE (1%) 10 MG/1 ML VIAL 20 ML MDV INFILTRATI ONE (10:22)
--- NOTE | 2020-12-14 10:23 | Emergency Department Report ---
Abscess Boil HPI - HPI Chief Complaint: Skin/Abscess/Foreign Body Stated Complaint: RISINF ON BACK OF SCALP Time Seen by Provider: 12/14/20 10:17 Duration: >1 Week (2 weeks) Location: Head (occipital scalp) History: Yes Pain, Yes Previous History, No Purulent Drainage, No Numbness, No Foreign Body, No Insect Bite HPI: 60-year-old male presents to the ER complaint of an abscess to his occipital scalp. Patient states that area was small about 2 weeks ago but has since gotten bigger, and more painful. Patient states that he has had abscesses to other areas of his body in the past but never to the scalp. He denies any apparent injury to the area or any bites. He denies any drainage. He denies any fever or chills at home. Home Medications: Home Medications Medication Instructions Recorded Confirmed Last Taken Amlodipine Besylate [Norvasc] 10 mg PO QDAY 06/17/18 05/28/19 06/16/18 Previous Rx's Medication Instructions Recorded Last Taken Type levETIRAcetam [Keppra TAB] 750 mg PO BID #60 tablet 05/29/19 Unknown Rx Sulfamethoxazole/Trimethoprim 1 each PO BID 10 Days #20 tablet 03/25/20 Unknown Rx [Bactrim DS TAB] Acetaminophen/Codeine [Tylenol 1 tab PO Q6H PRN #12 tab 12/14/20 Unknown Rx /Codeine # 3 tab] Clindamycin [Clindamycin CAP] 300 mg PO Q8H #30 cap 12/14/20 Unknown Rx Ibuprofen [Motrin] 600 mg PO Q8H PRN #30 tablet 12/14/20 Unknown Rx Allergies/Adverse Reactions: Allergies Allergy/AdvReac Type Severity Reaction Status Date / Time No Known Allergies Allergy Verified 03/25/20 16:09 ED Review of Systems ROS: Stated complaint: RISINF ON BACK OF SCALP Other details as noted in HPI Comment: All other systems reviewed and negative Constitutional: denies: chills, fever Skin: other (Abscess occipital scalp) ED Past Medical Hx - Past Medical History Previous Medical History?: Yes Hx Hypertension: Yes Hx Congestive Heart Failure: No Hx Diabetes: No Hx Seizures: Yes Hx Asthma: No Hx COPD: No Hx HIV: No - Surgical History Past Surgical History?: Yes Additional Surgical History: Abdominal surgery - Social History Smoking Status: Never Smoker Substance Use Type: None - Medications Home Medications: Home Medications Medication Instructions Recorded Confirmed Last Taken Type Amlodipine Besylate [Norvasc] 10 mg PO QDAY 06/17/18 05/28/19 06/16/18 History levETIRAcetam [Keppra TAB] 750 mg PO BID #60 tablet 05/29/19 Unknown Rx Sulfamethoxazole/Trimethoprim 1 each PO BID 10 Days #20 tablet 03/25/20 Unknown Rx [Bactrim DS TAB] Acetaminophen/Codeine [Tylenol 1 tab PO Q6H PRN #12 tab 12/14/20 Unknown Rx /Codeine # 3 tab] Clindamycin [Clindamycin CAP] 300 mg PO Q8H #30 cap 12/14/20 Unknown Rx Ibuprofen [Motrin] 600 mg PO Q8H PRN #30 tablet 12/14/20 Unknown Rx ED Abscess Boil Physical Exam - Exam General: Vital signs noted. No distress. Alert and acting appropriately. Size: 5 cm Exam: Yes Tenderness, Yes Fluctuance (Mild), Yes Surrounding Cellulites/Erythema (Mild), Yes Normal Neurologic Exam, Yes Normal Circulation, No Lymphangitis, No Crepitation, No Heart Murmur I & D Note - I & D Note I & D Note: Location: Occipital scalp. anesthesia use: 1% lidocaine. area cleansed with betadine. 11 inch blade used to make incision. mod amount of sebaceous material and small amt of blood drained. probed with forceps to remove any loculations. Irrigated with saline. No packing placed. dressing applied. patient tolerated procedure well without any complications. ED Course Vital Signs 12/14/20 10:09 Temperature 98.1 F Pulse Rate 92 H Respiratory 20 Rate Blood Pressure 138/73 O2 Sat by Pulse 99 Oximetry Critical care attestation.: If time is entered above; I have spent that time in minutes in the direct care of this critically ill patient, excluding procedure time. ED Disposition Clinical Impression: Abscess, scalp, Infected sebaceous cyst Disposition: HOME / SELF CARE / HOMELESS Is pt being admited?: No Does the pt Need Aspirin: No Condition: Stable Instructions: Skin Abscess, [id number], Epidermal Cyst Additional Instructions: Keep the area clean with soap and water. Apply warm compresses to the area to help with pain and swelling. Take the antibiotic and the pain medication as prescribed. You can follow-up with the general surgeon listed on your discharge instructions if this becomes a recurrent problem. Return to the ER if your symptoms changes or worsens in any way. Prescriptions: Clindamycin [Clindamycin CAP] 300 mg PO Q8H #30 cap Ibuprofen [Motrin] 600 mg PO Q8H PRN #30 tablet PRN Reason: Pain Acetaminophen/Codeine [Tylenol /Codeine # 3 tab] 1 tab PO Q6H PRN #12 tab PRN Reason: Pain , Severe (7-10) Referrals: KELLY LANE DO [Staff Physician] - 7-10 days (General surgeon ) Time of Disposition: 10:48 Print Language: BARBADIAN
[2020-12-14] MEDS ORDERED: ACETAMINOPHEN W/CODEINE 300-30 MG TAB PO ONE (10:54)
[2020-12-14] MEDS ORDERED: IBUPROFEN 600 MG TAB PO ONE (10:54)
[2020-12-14 11:05] VITALS: BP 150/87
== END 2020-12-14 11:30 | disposition home or self-care (01) ==
LOC: ED 09:48
DX: L02.811 Cutaneous abscess of head [any part, except face] (principal); L72.3 Sebaceous cyst; I10 Essential (primary) hypertension; R56.9 Unspecified convulsions; Z98.890 Other specified postprocedural states
CPT/HCPCS: 99282